=== PATIENT | male | born 1995 | race Caucasian/White ===

== ENCOUNTER 2025-08-21 18:22 | Inpatient (IN) | payer MEDICARE, MEDICAID, SELFPAY ==
--- OUTSIDE RECORDS SUMMARY | 2025-08-20 21:36 | XMS_ITS | Encounter Summary ---
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 results. Oxycodone Screen, Ur Negative Negative LAB CHEMISTRY METHOD 08/20/2025 10:48 PM EDT [facility] Fentanyl, Ur Negative Negative LAB CHEMISTRY METHOD 08/20/2025 10:48 PM T [facility] Urine Urine specimen obtained by clean catch procedure / Unknown Non-blood Collection / Unknown 08/20/2025 9:56 PM EDT 08/20/2025 10:09 PM EDT Narrative [facility] - 08/20/2025 10:48 PM EDT Assay cutoffs: Amphetamines 1000 ng/mL Barbiturates 200 ng/mL Benzodiazepines 200 ng/mL Cocaine 300 ng/mL Fentanyl 1 ng/mL Opiates 300 ng/mL Oxycodone 100 ng/mL THC 50 ng/mL Semi-quantitative assay for screening purposes only. Unconfirmed screening result should not be used for non-medical purposes. *ALTERNATE METHOD CONFIRMATION DONE UPON REQUEST ONLY* us Tex Porras MD LAB URINE ORDERABLES Final Resu lt Performing Organization Address City/[facility]/ZIP Co de Phone Number [facility] [address] [place] [address], [place] [phone] * (ABNORMAL) Salicylate level (08/20/2025 9:56 PM EDT) Salicylate Level <1.7(L) 2.0 - 29.0 mg/dL LAB CHEMISTRY METHOD 08/20/2025 10:45 PM EDT [facility] Blood Venous blood specimen / Unknown Venipuncture / Unknown 08/20/2025 9:56 PM EDT 08/20/2025 10:10 PM EDT Tex Porras MD LAB BLOOD ORDERABLES Final Resu lt [facility] [address] [place] [address], [place] [phone] * Acetaminophen level (08/20/2025 9:56 PM EDT) Acetaminophen Level <2.0 mcg/mL 08/20/2025 10:50 PM EDT [facility] Blood Venous blood specimen / Unknown Venipuncture / Unknown 08/20/2025 9:56 PM EDT 08/20/2025 10:10 PM EDT us Tex Porras MD LAB BLOOD ORDERABLES Final Resu lt Performing Organization Address City/[facility]/ZIP Co de Phone Number [facility] [address] [place] [address], [place] [phone] * Ethanol (08/20/2025 9:56 PM EDT) Ethanol Level <3 0 - 10 mg/dL LAB CHEMISTRY METHOD 08/20/2025 10:45 PM EDT [facility] Blood Venous blood specimen / Unknown Venipuncture / Unknown 08/20/2025 9:56 PM EDT 08/20/2025 10:10 PM EDT us Tex Porras MD LAB BLOOD ORDERABLES Final Resu lt Performing Organization Address [facility]/ZIP Co de Phone Number [facility] [address] [place] [address], [place] [phone] * (ABNORMAL) Comprehensive metabolic panel (08/20/2025 9:56 PM EDT) Pathologist [facility] Sodium 136 133 - 145 mmol/L LAB CHEMISTRY METHOD 08/20/2025 10:45 PM EDT [facility] Potassium 3.9 3.5 - 5.5 mmol/L LAB CHEMISTRY METHOD 08/20/2025 10:45 PM EDT [facility] Chloride 109 96 - 110 mmol/L LAB CHEMISTRY METHOD 08/20/2025 10:45 PM EDT [facility] CO2 20(L) 21 - 32 mmol/L LAB CHEMISTRY METHOD 08/20/2025 10:45 PM EDT [facility] Anion Gap 7 3 - 11 LAB CHEMISTRY METHOD 08/20/2025 10:45 PM EDT [facility] Glucose 102(H) 70 - 100 mg/dL LAB CHEMISTRY METHOD 08/20/2025 10:45 PM EDT [facility] BUN 10 5 - 25 mg/dL LAB CHEMISTRY METHOD 08/20/2025 10:45 PM [facility] Creatinine 0.98 0.70 - 1.30 mg/dL LAB CHEMISTRY METHOD 08/20/2025 10:45 PM [facility] eGFR 107 >=60 mL/min/1. 73m2 LAB CHEMISTRY METHOD 08/20/2025 10:45 PM [facility] Comment:Calculation based on the Chronic Kidney Disease Epidemiology Collaboration (CKD-EPI) equation refit without adjustment for race. BUN/Creatinine Ratio 10.2 LAB CHEMISTRY METHOD 08/20/2025 10:45 PM [facility] Calcium 9.4 8.5 - 10.5 mg/dL LAB CHEMISTRY METHOD 08/20/2025 10:45 PM [facility] AST (SGOT) 11 10 - 42 unit/L LAB CHEMISTRY METHOD 08/20/2025 10:45 PM [facility] ALT (SGPT) 21 10 - 60 unit/L LAB CHEMISTRY METHOD 08/20/2025 10:45 PM [facility] Alkaline Phosphatase 58 42 - 121 unit/L LAB CHEMISTRY METHOD 08/20/2025 10:45 PM [facility] Total Protein 6.9 6.0 - 8.0 g/dL LAB CHEMISTRY METHOD 08/20/2025 10:45 PM [facility] Albumin 3.6 3.2 - 5.0 g/dL LAB CHEMISTRY METHOD 08/20/2025 10:45 PM [facility] Total Bilirubin 0.2 0.0 - 1.4 mg/dL LAB CHEMISTRY METHOD 08/20/2025 10:45 PM [facility] Blood Venous blood specimen / Unknown Venipuncture / Unknown 08/20/2025 9:56 PM EDT 08/20/2025 10:10 PM EDT us Tex Porras MD LAB BLOOD ORDERABLES Final Resu lt [facility] [address] [place] [address], documented in this encounter Visit Diagnoses Diagnosis Suicidal ideation- Primary documented in this encounter Administered Medications Inactive Administered Medications - up to 3 most recent administrations Medication Order MAR Action Action Date Dose Rate Site acetaminophen (TYLENOL) tablet 1,000 mg 1,000 mg, oral, 3 times daily, First dose on Tue08/20/25 at 2138 aluminum-magnesium hydroxide-simethicone (MAALOX) 200-200-20 mg/5 mL suspension 30 mL 30 mL, oral, Every 8 hours PRN, heartburn, indigestion, Starting on Tue08/20/25 at 2136 melatonin tablet 6 mg 6 mg, oral, Nightly PRN, sleep, Starting on Tue08/20/25 at 2136 ondansetron ODT (ZOFRAN-ODT) disintegrating tablet 4 mg 4 mg, oral, Every 8 hours PRN, nausea, vomiting, Starting on Tue08/20/25 at 2137 penicillin G benzathine (BICILLIN-LA) IM injection 1.2 Million Units 1.2 Million Units, intramuscular, Once, On Tue08/21/25 at 1230, For 1 dose, For IM injection ONLY. CAUTION: For intramuscular injection ONLY. Complex administration instructions, see package insert or drug reference link., Indication: Head/Ear/Eye/Nose/Thro at Coverage Given 08/21/2025 12:12 PM EDT 1.2 Million Units Right Ventrogluteal documented in this encounter Active and Recently Administered Medications Times are shown in EDT. Scheduled Medication Order 08/19/2025 08/20/2025 08/21/2025 acetaminophen (TYLENOL) tablet 1,000 mg 1,000 mg, oral, 3 times daily, First dose on Tue08/20/25 at 2138 2230 (Not Given - Provider: Capri Green RN - Reason: Patient/Resident/Agent refused - education provided ) 0834 (Not Given - Provider: Juani Malloy RN - Reason: Patient/Resident/Agent refused - education provided )1305 (Not Given - Provider: Juani Malloy RN - Reason: Patient/Resident/Agent refused - education provided ) penicillin G benzathine (BICILLIN-LA) IM injection 1.2 Million Units (COMPLETED) 1.2 Million Units, intramuscular, Once, On Tue08/21/25 at 1230, For 1 dose, For IM injection ONLY. CAUTION: For intramuscular injection ONLY. Complex administration instructions, see package insert or drug reference link., Indication: Head/Ear/Eye/Nose/Throat Coverage 1212 (Given - Provid er: Juani Malloy RN) PRN Medication Order 08/19/2025 08/20/2025 08/21/2025 aluminum-magnesium hydroxide-simethicone (MAALOX) 200-200-20 mg/5 mL suspension 30 mL 30 mL, oral, Every 8 hours PRN, heartburn, indigestion, Starting on Tue08/20/25 at 2137 melatonin tablet 6 mg 6 mg, oral, Nightly PRN, sleep, Starting on Tue08/20/25 at 2137 ondansetron ODT (ZOFRAN-ODT) disintegrating tablet 4 mg 4 mg, oral, Every 8 hours PRN, nausea, vomiting, Starting on Tue08/20/25 at 2137 documented in this encounter Orders Medications Ordered That Brandt ht Not Have Been Administered Count Last Ordered Date First Ordered Date acetaminophen (TYLENOL) tablet 1,000 mg 1 1 aluminum-magnesium hydroxide -simethicone (MAALOX) 200-200-20 mg/5 mL suspension 30 mL 1 08/20/2025 melatonin tablet 6 mg 1 08/20/2025 ondansetron ODT (ZOFRAN-ODT) disintegrating tablet 4 mg 1 08/20/2025 Consult Count Last Ordered Date First Orde red Date IP CONSULT TO POLITICAL ORGANIZER 1 08/20/2025 documented in this encounter Care Teams [employer] Crew Member Relationship Specialty Start Date End Date Physician, Pcp Unknown PCP - General 06/05/25 documented as of this encounter
[2025-08-21 18:55] VITALS: BP 105/59; PULSE 99; TEMP 37.3; O2SAT 99
[2025-08-21 18:56] VITALS: BMI 52.3
--- NOTE | 2025-08-21 22:02 | PC.ADMIT ---
Juani (Legal name Evgeny) arrived from [facility] at 18:34 on a CV for SI/HI. She is a 29 year old transwoman who uses she/her pronouns. Per RAD team she prefers a male roommate. She resides at a [facility] detention and is unhappy with the situation there. Per crisis report she threatened to run out into traffic and did so prior to being brought to the [facility] ED. She also endorses HI but has not exhibited any aggressive behavior. We know of her contacts as follows: Lorenzo Rodriguez: [facility] Clinical Director [phone] Hernandez Deacon: [facility] Appointed Guardian: [phone] Chelo Kalpana: [facility] Therapist: [phone] Matilde Velásquez: [facility] Psychiatrist [phone] Dr. Romo PCP: [phone] [facility] Mcfp: [phone] assembly supervisor Frederick: [phone] She has previously been inpatient at the [facility] unit. While at [facility] she was calm and cooperative. The sending nurse notes that she was given a shot of Penicillin G for strep pharyngitis 12:12 today. Her diagnoses include PTSD, anxiety, depression, autism, ADHD, seizure disorder, disruptive mood dysregulation disorder, intellectual disability, and gender dysphoria. Tox negative for all substances. Per unit admission, Pt was calm and cooperative with the admission procedure. She endorses SI with no plan and AH, hearing voices but will not disclosed what it is. She appeared to be having cognitive delay/low IQ. She signed released for insurance and pharmacy, signed statement of understanding form, no phone for my contact list. Though, she consented to have the FLU shot but preferred to get it tomorrow morning. safety/skin check shows bruises on Rt forearm and callouses feet. Pt feels safe on the unit. Treatment plans and safety tools initiated, hospitalist contacted for consultation. Pt is on 15 minutes check.
--- OUTSIDE RECORDS SUMMARY | 2025-08-21 22:19 | XMS_ITS | Clinical Summary ---
Author Organization [facility] Address [address] [place] [address] Phone Care Team Providers Care Leach Runner Name Role Phone Physician, Pcp Unknown Primary Care Provider Sue vailable Allergies No known active allergies Medications citalopram (CeleXA) 20 mg tablet Take 1 tablet (20 mg total) by mouth 2 (two) times a day. 08/02/2024 Active amphetamine-dex troamphetamine XR (ADDERALL XR) 20 mg 24 hr capsule Take 1 capsule (20 mg total) by mouth 1 (one) time each day in the morning. 09/06/2024 Active Banophen 25 mg capsule Take 1 capsule (25 mg total) by mouth 1 (one) time each day in the morning. 08/27/2024 Active estradioL (ESTRACE) 1 mg tablet Take 3 tablets (3 mg total) by mouth 2 (two) times a day. 09/04/2024 Active melatonin 5 mg tablet Take 1 tablet (5 mg total) by mouth at bedtime. 08/27/2024 Active OXcarbazepine (TRILEPTAL) 300 mg tablet Take 1 tablet (300 mg total) by mouth 2 (two) times a day. for 30 days 08/18/2024 Active risperiDONE (RisperDAL) 0.25 mg tablet Take 4 tablets (1 mg total) by mouth 2 (two) times a day. 08/20/2024 Active traZODone (DESYREL) 100 mg tablet Take 1 tablet (100 mg total) by mouth at bedtime. 08/02/2024 Active Gavilax 17 gram/dose oral powder Take 17 g by mouth 1 (one) time each day if needed for constipation. 08/27/2024 Active dulaglutide (TRULICITY) 1.5 mg/0.5 mL pen injector injection Inject 0.5 mL (1.5 mg total) under the skin every 7 (seven) days. Active spironolactone (ALDACTONE) 50 mg tablet Take 2 tablets (100 mg total) by mouth 2 (two) times a day. Active carBAMazepine (CARBATROL) 300 mg 12 hr capsule Take 2 capsules (600 mg total) by mouth 2 (two) times a day. Do not crush or chew. Active metFORMIN XR (GLUCOPHAGE-XR) 500 mg 24 hr tablet Take 2 tablets (1,000 mg total) by mouth 2 (two) times a day. 07/27/2024 Active hydrOXYzine pamoate (VISTARIL) 50 mg capsule Take 1 capsule (50 mg total) by mouth 2 (two) times a day. Active Active Problems No known active problems Encounters Date Type Department Care Team Description 08/20/2025 9:36 PM EDT - 08/21/2025 6:08 PM EDT Emergency [facility] [address] [place] [address] Tex Porras MD Landry, Jonathan P, MD Suicidal ideation (Primary Dx) Discharge Disposition: Another Health Care Institution Not Defined 06/05/2025 9:26 PM EDT - 06/06/2025 11:20 AM EDT [facility] Emergency [address] [place] [address] Dulce Dejesus MD Landry, Jonathan P, MD Suicidal ideation (Primary Dx); Adjustment disorder, unspecified type; Episode of recurrent major depressive disorder, unspecified depression episode severity ([facility] V24) Discharge Disposition: Home or Self Care from Last 3 Months Medical History Medical History Date Comments Adhd per long term f act sheet Anxiety disorder, unspecified pe r long term fact sheet Mild intellectual disability per long term fact sheet Autism spectrum disorder per [facility] fact sheet Disruptive mood dysregulation disorder ([facility] V24) per long term fact sheet Obesity per long term f act sheet Seizure disorder ([facility] V24, [facility] V28) 2019 per H + P Enuresis 2019 per H + P Social History Tobacco Use Types Packs/Day Years [...] on file Sexual Orientation Not on file Obstetrics History Last Filed Vital Signs Vital Sign Reading Time Taken Comments Blood Pressure 111/68 08/21/2025 12:44 PM EDT Pulse 96 08/21/2025 12:44 PM EDT Temperature 37.2 C (98.9 F) 08/21/2025 12:44 PM EDT Respiratory Rate 16 08/21/2025 12:44 PM EDT Oxygen Saturation 100% 08/21/2025 12:44 PM EDT Inhaled Oxygen Concentration - - Weight 136 kg (300 lb 1.6 oz) 06/06/2025 9:06 AM EDT Height 170.2 cm (5' 7 ) 06/05/2025 9:41 PM EDT Body Mass Index 47 06/05/2025 9:41 PM EDT Plan of Treatment Health Maintenance Due Date Last Done Comments HPV Vaccines (2 - Male 3-dose series) 10/02/2013 09/04/2013 HIV Screening 09/11/2024 Hepatitis C Screening 09/11/2024 Medicare Annual Wellness Visit 09/11/2024 Social Influencers of Health Screening 09/11/2024 Depression Screening 10/31/2024 Influenza Vaccine (#1) 2025 , 08/04/2023, 08/12/2022, Additional history exists DTaP,Tdap,and Td Vaccines (9 - Td or Tdap) 02/21/2029 02/21/2019, 10/20/2017, 07/20/2007, Additional history exists Cholesterol Screening (Lipid Panel) 09/18/2029 09/18/2024 RSV Immunization Adult Patients (1 - 1-dose 75+ series) 2070 Hepatitis B Vaccines Completed 10/02/1996, 01/17/1996, 1995 HIB Vaccines Completed 03/29/1997, 07/01, 05/08/1996, Additional history exists MMR Vaccines Completed 07/05/2000, 03/29/1997 IPV Vaccines Completed 12/30/2000, 07/01, 05/08/1996, Additional history exists Varicella Vaccines Completed 07/20/2007, 12/26/1997 Meningococcal ACWY Vaccine Completed 02/28/2012, COVID-19 Vaccine Completed 07/31/2024, , 01/10/2021, Additional history exists Hepatitis A Vaccines Aged Out No long er eligible based on patient's age to complete this topic Meningococcal B Vaccine Aged Out No l onger eligible based on patient's age to complete this topic Pneumococcal Vaccine: Pediatrics (0 to 5 Years) and At-Risk Patients (6 to 49 Years) Aged Out No longer eligible based on patient's age to complete this topic RSV Immunization Patients Under 20 months Aged Out No longer eligible based on patient's age to complete this topic Procedures Procedure Name Priority Date/Time Associated Diagnosis Comments ECG 12-LEAD STAT 08/20/2025 10:02 PM EDT CBC WITH AUTO DIFFERENTIAL STAT 08/20/2025 9:56 PM EDT METHADONE SCREEN, URINE STAT 08/20/2025 9:56 PM EDT PHENCYCLIDINE, URINE STAT 08/20/2025 9:56 PM EDT BUPRENORPHINE SCREEN, URINE STAT 08/20/2025 9:56 PM EDT DRUG ABUSE SCREEN 8A PANEL, URINE STAT 08/20/2025 9:56 PM EDT SALICYLATE LEVEL STAT 08/20/2025 9:56 PM EDT ACETAMINOPHEN LEVEL STAT 08/20/2025 9 :56 PM EDT ETHANOL STAT 08/20/2025 9:56 PM EDT COMPREHENSIVE METABOLIC PANEL STAT 08/20/2025 9:56 PM EDT CBC AND DIFFERENTIAL STAT 08/20/2025 9:56 PM EDT ECG ANNOTATED 06/07/2025 ECG 12-LEAD STAT 06/06/2025 10:19 AM EDT CBC WITH AUTO DIFFERENTIAL STAT 06/05/2025 9:37 PM EDT METHADONE SCREEN, URINE STAT 06/05/2025 9:37 PM EDT PHENCYCLIDINE, URINE STAT 06/05/2025 9:37 PM EDT BUPRENORPHINE SCREEN, URINE STAT 06/05/2025 9:37 PM EDT DRUG ABUSE SCREEN 8A PANEL, URINE STAT 06/05/2025 9:37 PM EDT SALICYLATE LEVEL STAT 06/05/2025 9:37 PM EDT ACETAMINOPHEN LEVEL STAT 06/05/2025 9 :37 PM EDT ETHANOL STAT 06/05/2025 9:37 PM EDT COMPREHENSIVE METABOLIC PANEL STAT 06/05/2025 9:37 PM EDT CBC AND DIFFERENTIAL STAT 06/05/2025 9:37 PM EDT LIPID PANEL WITH REFLEX TO DIRECT LDL Routine 09/18/2024 7:00 AM EST Other dedicated intermodal truck driver (current) drug therapy from Last 3 Months or Most Recently Relevant to Health Maintenance Results * ECG 12 lead (08/20/2025 10:02 PM EDT) Only the most recent of2 resultswithin the time period is included. Ventricular Rate ECG 90 BPM GEMUSE Atrial Rate 90 BPM GEMUSE P-R Interval 156 ms GEMUSE QRS Duration 82 ms GEMUSE Q-T Interval 386 ms GEMUSE QTc 472 ms GEMUSE P Wave [place] 53 degrees GEMUSE R [place] 29 degrees GEMUSE T [place] 50 degrees GEMUSE ECG Interpretation Normal sinus rhythm Normal ECG When compared with ECG of 06-JUN-2025 10:19, Nonspecific T wave abnormality no longer evident in Anterior leads Confirmed by Bonny ABRAHAM JOHN ([id number]) on 08/21/2025 7:16:18 PM GEMUSE 08/20/2025 10:0 2 PM EDT 08/21/2025 7:16 PM EDT Tex Porras MD ECG ORDERABLES Final Result GEMUSE * Drug abuse screen 8a panel, urine (08/20/2025 9:56 PM EDT) Only the most recent of2 resultswithin the time period is included. [facility] Amphetamine Screen, Ur Negative Negative LAB CHEMISTRY METHOD 08/20/2025 10:48 PM EDT [facility] Comment:Certain OTC medicati ons containing ephedrine, phenylephrine, pseudoephedrine and phenylpropanolamine can cause false positive results. Barbiturate Screen, Ur Negative Negative LAB CHEMISTRY METHOD 08/20/2025 10:48 PM EDT [facility] Benzodiazepine Screen, Ur Negative Negative LAB CHEMISTRY METHOD 08/20/2025 10:48 PM EDT [facility] Cocaine Screen, Ur Negative Negative LAB CHEMISTRY METHOD 08/20/2025 10:48 PM EDT [facility] Opiate Screen, Ur Negative Negative LAB CHEMISTRY METHOD 08/20/2025 10:48 PM EDT [facility] Cannabinoid (THC) Screen, Ur Negative Negative LAB CHEMISTRY METHOD 08/20/2025 10:48 PM EDT [facility] Comment:Specimens from patie nts taking pantoprazole sodium (Protonix) have been shown to produce false positive results. Oxycodone Screen, Ur Negative Negative LAB CHEMISTRY METHOD 08/20/2025 10:48 PM EDT [facility] Fentanyl, Ur Negative Negative LAB CHEMISTRY METHOD 08/20/2025 10:48 PM EDT [facility] Urine Urine specimen obtained by clean catch procedure / Unknown Non-blood Collection / Unknown 08/20/2025 9:56 PM EDT 08/20/2025 10:09 PM EDT Narrative [facility] - 08/20/2025 10:48 PM EDT [...] ORDERABLES Final Resu lt Performing Organization Address City/[facility]/ZIP Co de Phone Number [facility] [address] [place] [address], [place] [phone] * Buprenorphine screen, urine (08/20/2025 9:56 PM EDT) Only the most recent of2 resultswithin the time period is included. [facility] Buprenorphine Screen Urine Negative Negative LAB CHEMISTRY METHOD 08/20/2025 10:48 PM EDT [facility] Urine Urine specimen obtained by clean catch procedure / Unknown Non-blood Collection / Unknown 08/20/2025 9:56 PM EDT 08/20/2025 10:09 PM EDT Narrative [facility] - 08/20/2025 10:48 PM EDT Assay cutoff 5 ng/mL Semi-quantitative assay for screening purposes only. Unconfirmed screening result should not be used for non-medical purposes. *ALTERNATE METHOD CONFIRMATION DONE UPON REQUEST ONLY* Tex Porras MD LAB URINE ORDERABLES Final Resu lt [facility] [address] [place] [address], [place] [phone] * Methadone, urine (08/20/2025 9:56 PM EDT) Only the most recent of2 resultswithin the time period is included. [facility] Methadone Screen, Urine Negative Negative LAB CHEMISTRY METHOD 08/20/2025 10:48 PM EDT [facility] Comment: Assay cutoff 300 ng/mL Semi-quantitative assay for screening purposes only. Unconfirmed screening result should not be used for non-medical purposes. *ALTERNATE METHOD CONFIRMATION DONE UPON REQUEST ONLY* Urine Urine specimen obtained by clean catch procedure / Unknown Non-blood Collection / Unknown 08/20/2025 9:56 PM EDT 08/20/2025 10:09 PM EDT Tex Porras MD LAB URINE ORDERABLES Final Resu lt [facility] [address] [place] [address], * (ABNORMAL) CBC auto differential (08/20/2025 9:56 PM EDT) Only the most recent of2 resultswithin the time period is included. [facility] WBC 11.0(H) 4.8 - 10.8 K/mcL LAB HEMETOLOGY METHOD 08/20/2025 10:23 PM EDT [facility] RBC 4.70 4.50 - 5.50 M/mcL LAB HEMETOLOGY METHOD 08/20/2025 10:23 PM EDT [facility] Hemoglobin 13.3(L) 13.5 - 17.5 g/dL LAB HEMETOLOGY METHOD 08/20/2025 10:23 PM EDT [facility] Hematocrit 40.0(L) 42.0 - 54.0 % LAB HEMETOLOGY METHOD 08/20/2025 10:23 PM EDT [facility] MCV 84.4 79.0 - 98.0 FL LAB HEMETOLOGY METHOD 08/20/2025 10:23 PM EDT [facility] MCH 28.1 27.0 - 32.0 pcg LAB HEMETOLOGY METHOD 08/20/2025 10:23 PM EDT [facility] MCHC 33.3 32.0 - 37.0 g/dL LAB HEMETOLOGY METHOD 08/20/2025 10:[facility] RDW 13.1 11.0 - 15.0 % LAB HEMETOLOGY METHOD 08/20/2025 10:23 PM EDT [facility] Platelets 380 130 - 400 K/mcL LAB HEMETOLOGY METHOD 08/20/2025 10:23 PM EDT [facility] MPV 9.6 7.0 - 11.0 FL LAB HEMETOLOGY METHOD 08/20/2025 10:23 PM [facility] NRBC 0.0 <1.0 % LAB HEMETOLOGY METHOD 08/20/2025 10:23 PM EDT [facility] NRBC Absolute 0.00 <0.10 K/mcL LAB HEMETOLOGY METHOD 08/20/2025 10:23 PM [facility] Neutrophils Relative 75.3 % LAB HEMETOLOGY METHOD 08/20/2025 10:23 PM [facility] Lymphocytes Relative 15.5 % LAB HEMETOLOGY METHOD 08/20/2025 10:23 PM EDT [facility] Monocytes Relative 6.6 % LAB HEMETOLOGY METHOD 08/20/2025 10:23 PM T [facility] Eosinophils Relative 1.7 % LAB HEMETOLOGY METHOD 08/20/2025 10:23 PM EDT [facility] Basophils Relative 0.5 % LAB HEMETOLOGY METHOD 08/20/2025 10:23 PM [facility] Immature Granulocytes Relative 0.4 % LAB HEMETOLOGY METHOD 08/20/2025 10:23 PM EDT [facility] Neutrophils Absolute 8.30(H) 1.50 - 7.00 K/mcL LAB HEMETOLOGY METHOD 08/20/2025 10:23 PM EDT [facility] Lymphocytes Absolute 1.71 1.00 - 5.00 K/mcL LAB HEMETOLOGY METHOD 08/20/2025 10:23 PM EDT [facility] Monocytes Absolute 0.73 0.20 - 1.00 K/[facility] LAB HEMETOLOGY METHOD 08/20/2025 10:23 PM EDT [facility] Eosinophils Absolute 0.19 0.00 - 0.50 K/[facility] LAB HEMETOLOGY METHOD 08/20/2025 10:23 PM EDT [facility] Basophils Absolute 0.05 0.00 - 0.20 K/mcL LAB HEMETOLOGY METHOD 08/20/2025 10:23 PM EDT [facility] Immature Granulocytes Absolute 0.04(H) 0.00 - 0.03 K/[facility] LAB HEMETOLOGY METHOD 08/20/2025 10:23 PM EDT [facility] Blood Venous blood specimen / Unknown Venipuncture / Unknown 08/20/2025 9:56 PM EDT 08/20/2025 10:10 PM EDT eTx Porras MD LAB BLOOD ORDERABLES Final Resu lt [facility] [address] [place] [address], * Phencyclidine, urine (08/20/2025 9:56 PM EDT) Only the most recent of2 resultswithin the time period is included. PCP Scrn, Ur Negative Negative LAB CHEMISTRY METHOD 08/20/2025 10:49 PM EDT [facility] Comment: Assay cutoff 25 ng/mL Semi-quantitative assay for screening purposes only. Unconfirmed screening result should not be used for non-medical purposes. *ALTERNATE METHOD CONFIRMATION DONE UPON REQUEST ONLY* Urine Urine specimen obtained by clean catch procedure / Unknown Non-blood Collection / Unknown 08/20/2025 9:56 PM EDT 08/20/2025 10:09 PM EDT us Tex Porras MD LAB URINE ORDERABLES Final Resu lt Performing Organization Address [facility] de Phone Number [facility] [address] [place] [address], [place] [phone] * Ethanol (08/20/2025 9:56 PM EDT) Only the most recent of2 resultswithin the time period is included. Ethanol Level <3 0 - 10 mg/dL LAB CHEMISTRY METHOD 08/20/2025 10:45 PM EDT [facility] Blood Venous blood specimen / Unknown Venipuncture / Unknown 08/20/2025 9:56 PM EDT 08/20/2025 10:10 PM EDT us Tex Porras MD LAB BLOOD ORDERABLES Final Resu lt Performing Organization Address [facility] de Phone Number [facility] [address] [place] [address], [place] [phone] * Acetaminophen level (08/20/2025 9:56 PM EDT) Only the most recent of2 resultswithin the time period is included. Acetaminophen Level <2.0 mcg/mL 08/20/2025 10:50 PM EDT [facility] Blood Venous blood specimen / Unknown Venipuncture / Unknown 08/20/2025 9:56 PM EDT 08/20/2025 10:10 PM EDT us Tex Porras MD LAB BLOOD ORDERABLES Final Resu lt Performing Organization Address [facility]/State/ZIP Co de Phone Number [facility] [address] [place] [address], [place] [phone] * (ABNORMAL) Salicylate level (08/20/2025 9:56 PM EDT) Only the most recent of2 resultswithin the time period is included. Salicylate Level <1.7(L) 2.0 - 29.0 mg/dL LAB CHEMISTRY METHOD 08/20/2025 10:45 PM EDT [facility] Blood Venous blood specimen / Unknown Venipuncture / Unknown 08/20/2025 9:56 PM EDT 08/20/2025 10:10 PM EDT Tex Porras MD LAB BLOOD ORDERABLES Final Resu lt [facility] [address] [place] [address], [place] [phone] * (ABNORMAL) Comprehensive metabolic panel (08/20/2025 9:56 PM EDT) Only the most recent of2 resultswithin the time period is included. Sodium 136 133 - 145 mmol/L LAB CHEMISTRY METHOD 08/20/2025 10:45 PM EDT [facility] Potassium 3.9 3.5 - 5.5 mmol/L LAB CHEMISTRY METHOD 08/20/2025 10:45 PM EDT [facility] Chloride 109 96 - 110 mmol/L LAB CHEMISTRY METHOD 08/20/2025 10:45 PM EDT [facility] CO2 20(L) 21 - 32 mmol/L LAB CHEMISTRY METHOD 08/20/2025 10:45 PM EDT [facility] Anion Gap 7 3 - 11 LAB CHEMISTRY METHOD 08/20/2025 10:45 PM EDT [facility] Glucose 102(H) 70 - 100 mg/dL LAB CHEMISTRY METHOD 08/20/2025 10:45 PM [facility] BUN 10 5 - 25 mg/dL LAB CHEMISTRY METHOD 08/20/2025 10:45 PM [facility] Creatinine 0.98 0.70 - 1.30 mg/dL LAB CHEMISTRY METHOD 08/20/2025 10:45 PM [facility] eGFR 107 >=60 mL/min/1. 73m2 LAB CHEMISTRY METHOD 08/20/2025 10:45 PM [facility] Comment:Calculation based on the Chronic Kidney Disease Epidemiology Collaboration (CKD-EPI) equation refit without adjustment for race. BUN/Creatinine Ratio 10.2 LAB CHEMISTRY METHOD 08/20/2025 10:45 PM [facility] Calcium 9.4 8.5 - 10.5 mg/dL LAB CHEMISTRY METHOD 08/20/2025 10:45 PM [facility] AST (SGOT) 11 10 - 42 unit/L LAB CHEMISTRY METHOD 08/20/2025 10:45 PM [facility] ALT (SGPT) 21 10 - 60 unit/L LAB CHEMISTRY METHOD 08/20/2025 10:45 PM [facility] Alkaline Phosphatase 58 42 - 121 unit/L LAB CHEMISTRY METHOD 08/20/2025 10:45 PM [facility] Total Protein 6.9 6.0 - 8.0 g/dL LAB CHEMISTRY METHOD 08/20/2025 10:45 PM [facility] Albumin 3.6 3.2 - 5.0 g/dL LAB CHEMISTRY METHOD 08/20/2025 10:45 PM [facility] Total Bilirubin 0.2 0.0 - 1.4 mg/dL LAB CHEMISTRY METHOD 08/20/2025 10:45 PM [facility] Blood Venous blood specimen / Unknown Venipuncture / Unknown 08/20/2025 9:56 PM EDT 08/20/2025 10:10 PM EDT Tex Porras MD LAB BLOOD ORDERABLES Final Resu lt [facility] [address] [place] [address], [place] [phone] * ECG-Annotated (06/07/2025) Provider Onbase ECG ORDERABLES Final Result * (ABNORMAL) Lipid panel with reflex to direct LDL (09/18/2024 7:00 AM EST) Cholesterol 155 0 - 200 mg/dL LAB CHEMISTRY METHOD 09/18/2024 10:00 AM EST [facility] Triglycerides 79 0 - 150 mg/dL LAB CHEMISTRY METHOD 09/18/2024 10:00 AM [facility] HDL 37(L) >=40 mg/dL LAB CHEMISTRY METHOD 09/18/2024 10:00 AM EST [facility] LDL Calculated 102(H) 0 - 100 mg/dL LAB CHEMISTRY METHOD 09/18/2024 10:00 AM EST [facility] VLDL Cholesterol Alessandro 15.8 mg/dL LAB CHEMISTRY METHOD 09/18/2024 10:00 AM [facility] Non HDL Chol. (LDL+VLDL) 118 <145 mg/dL LAB CHEMISTRY METHOD 09/18/2024 10:00 AM EST [facility] Chol/HDL Ratio 4.2 0.0 - 4.4 LAB CHEMISTRY METHOD 09/18/2024 10:00 AM [facility] Blood Venous blood specimen / Unknown Venipuncture / Unknown 09/18/2024 7:00 AM EST 09/18/2024 9:00 AM EST Ella Escamilla LAB BLOOD ORDERABLES Final Resu lt [facility] [address] [place] [address], [place] [phone] from Last 3 Months or Most Recently Relevant to Health Maintenance Insurance MEDICARE MEDICAID - [place] Care Teams Leach Runner Relationship Specialty Start Date End Date Physician, Pcp Unknown PCP - General 06/05/25
--- OUTSIDE RECORDS SUMMARY | 2025-08-21 22:19 | XMS_ITS | Clinical Summary ---
Author Organization [facility] Address [address] [place] [address] Phone Care Team Providers Care Brush Material Preparer Name Role Phone Eliseo Foreman DO Primary Care Provider [phone] Allergies No known active allergies Medications risperiDONE (RISPERDAL) 0.25 MG tablet Take 0.25 mg by mouth 2 (two) times a day. Active fluticasone propionate (FLONASE) 50 mcg/actuation nasal spray 1 spray by Nasal route daily. Active traZODone (DESYREL) 100 MG tablet Take 100 mg by mouth nightly at bedtime. Active omeprazole (PRILOSEC) 20 mg TbEC Take 40 mg by mouth daily before breakfast. Active CARBAMAZEPINE ORAL Take 600 mg by mouth 2 (two) times a day. Active dextroamphetami ne-amphetamine (ADDERALL XR) 20 MG 24 hr capsule Take 20 mg by mouth every morning. Active citalopram (CELEXA) 20 MG tablet Take 30 mg by mouth nightly at bedtime. Active hydrOXYzine (VISTARIL) 25 MG capsule Take 25 mg by mouth 4 (four) times a day as needed for anxiety. Active diphenhydrAMINE (BENADRYL) 50 MG capsule Take 50 mg by mouth 2 (two) times a day as needed (anxiety). Active Social History Tobacco Use Types Packs/Day Years Used Date Smoking Tobacco: Never Smokeless Tobacco: Never Alcohol Use Standard Drinks/Week Comments Never 0 (1 standard drink = 0.6 oz pur e alcohol) Education Answer Date Recorded Are you interested in more education? Not on katie e 02/25/2023 Are you concerned about learning? Not on file 02/25/2023 No 02/25/2023 No 02/25/2023 Digital Access Answer Date Recorded No 03/26/2023 No 03/26/2023 No 03/26/2023 Reliable internet access at home? Not on file 03/26/2023 Device with a working camera? Not on file Sex and Gender Information Value Date Recorded Sex Assigned at Male 06/15/2019 7:58 PM EDT Legal Sex Male 7:40 PM EDT Gender Identity Male 06/15/2019 7:58 PM EDT Sexual Orientation Not on file Last Filed Vital Signs Vital Sign Reading Time Taken Comments Blood Pressure 115/73 06/19/2019 9:16 AM EDT Pulse 97 06/19/2019 9:16 AM EDT Temperature 36.6 C (97.9 F) 06/19/2019 9:16 AM EDT Respiratory Rate 17 06/19/2019 9:16 AM EDT Oxygen Saturation 96% 06/19/2019 9:16 AM EDT Inhaled Oxygen Concentration - - Weight 113.4 kg (250 lb) 06/17/2019 7:01 PM EDT Height 177.8 cm (5' 10 ) 06/17/2019 7:01 PM EDT Body Mass Index 35.87 06/17/2019 7:01 PM EDT Plan of Treatment Health Maintenance Due Date Last Done Comments CARBAMAZEPINE (TEGRETOL) LEVEL 1995 DEPRESSION SCREENING 2007 HEPATITIS C SCREENING 2013 HIV ONE-TIME SCREENING (18-65 YEARS) 2013 Adult Td,Tdap Booster 07/20/2017 07/20/2007 SMOKING STATUS SCREENING (Once After 26 Yrs) 2021 INFLUENZA VACCINE (#1) 2025 07/26/2008, 2006 COVID-19 VACCINE ( season) 2025 01/10/2021, 12/20/2020 HIB VACCINES Completed 03/29/1997, 07/01, 05/08/1996, Additional history exists MENINGOCOCCAL VACCINES (ACWY) Aged Out 07/26/2008 No longer eligible based on patient's age to complete this topic HEPATITIS A VACCINES Aged Out No long er eligible based on patient's age to complete this topic MENINGOCOCCAL VACCINES (B) Aged Out N o longer eligible based on patient's age to complete this topic PNEUMOCOCCAL VACCINES (0-49 years) Aged Out No longer eligible based on patient's age to complete this topic Medical Devices Not on file Insurance [place] [id number] MEDICARE PART A [facility] [address] [place] [address] [id number] MEDICARE PART A & [place] [id number] MEDICARE PART A [place] [id number] [place] [id number] MEDICARE PART A & [place] [id number] MEDICARE PART A & B [facility] [place] [id number] Care Teams Brush Material Preparer Relationship Specialty Start Date End Date Eliseo Foreman DO PCP - General 06/17/19 Additional Source Comments The information contained in this document represents components of the legal health record. It is not the complete legal health record.[facility]
--- OUTSIDE RECORDS SUMMARY | 2025-08-21 22:19 | XMS_ITS | Encounter Summary ---
Author Organization [facility] Address [address] [place] [address] Care Team Providers Care Pull Socket Assembler Name Role Phone Physician, Pcp Unknown Primary Care Provider Sue vailable Encounter Details Date Type Department Care Team (Late st Contact Info) Description 09/18/2024 Lab Requisition [facility] - Main Lab [address] [facility] [place] [phone] [place] [phone] Other fci (current) drug therapy Social History Tobacco Use Types Packs/Day Years Used Date Smoking Tobacco: Never Assessed Sex and Gender Information Value Date Recorded Sex Assigned at Not on file Legal Sex Male 8:00 PM EST Gender Identity Not on file Sexual Orientation Not on file documented as of this encounter Functional Status * Are you deaf or do you have serious difficulty hearing? Answer Date of Assessment Author No 09/11/2024 7:56 PM Piter Acevedo RN * Are you blind or do you have serious difficulty seeing, even when wearing glasses? Answer Date of Assessment Author No 09/11/2024 7:56 PM Piter Acevedo RN * Do you have serious difficulty walking or climbing stairs? Answer Date of Assessment Author No 09/11/2024 7:56 PM Piter Acevedo RN * Do you have serious difficulty dressing or bathing? Answer Date of Assessment Author No 09/11/2024 7:56 PM Piter Acevedo RN documented as of this encounter Mental Status * Because of a physical, mental, or emotional condition, do you have serious difficulty concentrating, remembering, or making decisions? (5 years old or older) Answer Entry Date Author No 09/11/2024 7:56 PM EST Piter Franklin RN documented in this encounter Plan of Treatment Not on file documented as of this encounter Procedures Procedure Name Priority Date/Time Associated Diagnosis Comments LIPID PANEL WITH REFLEX TO DIRECT LDL Routine 09/18/2024 7:00 AM EST Other joint terminal attack controller (current) drug therapy CBC WITH AUTO DIFFERENTIAL Routine 09/18/2024 7:00 AM EST Other fci (current) drug therapy CBC AND DIFFERENTIAL Routine 09/18/2024 7:00 AM EST Other joint terminal attack controller (current) drug therapy HEMOGLOBIN A1C Routine 09/18/2024 7:00 AM EST Other fci (current) drug therapy COMPREHENSIVE METABOLIC PANEL Routine 09/18/2024 7:00 AM EST Other fci (current) drug therapy documented in this encounter Results * (ABNORMAL) CBC auto differential (09/18/2024 7:00 AM EST) WBC 7.1 4.8 - 10.8 K/mcL LAB HEMETOLOGY METHOD 09/18/2024 9:35 AM [facility] RBC 4.20(L) 4.50 - 5.50 M/mcL LAB HEMETOLOGY METHOD 09/18/2024 9:35 AM [facility] Hemoglobin 12.0(L) 13.5 - 17.5 g/dL LAB HEMETOLOGY METHOD 09/18/2024 9:35 AM [facility] Hematocrit 37.0(L) 42.0 - 54.0 % LAB HEMETOLOGY METHOD 09/18/2024 9:35 AM [facility] MCV 89.2 79.0 - 98.0 FL LAB HEMETOLOGY METHOD 09/18/2024 9:35 AM [facility] MCH 28.9 27.0 - 32.0 pcg LAB HEMETOLOGY METHOD 09/18/2024 9:35 AM [facility] MCHC 32.4 32.0 - 37.0 g/dL LAB HEMETOLOGY METHOD 09/18/2024 9:35 AM [facility] RDW 13.2 11.0 - 15.0 % LAB HEMETOLOGY METHOD 09/18/2024 9:35 AM [facility] Platelets 366 130 - 400 K/mcL LAB HEMETOLOGY METHOD 09/18/2024 9:35 AM [facility] MPV 10.5 7.0 - 11.0 FL LAB HEMETOLOGY METHOD 09/18/2024 9:35 AM [facility] NRBC 0.3 <1.0 % LAB HEMETOLOGY METHOD 09/18/2024 9:35 AM [facility] NRBC Absolute 0.02 <0.10 K/[facility] LAB HEMETOLOGY METHOD 09/18/2024 9:35 AM [facility] Neutrophils Relative 63.3 % LAB HEMETOLOGY METHOD 09/18/2024 9:35 AM [facility] Lymphocytes Relative 23.3 % LAB HEMETOLOGY METHOD 09/18/2024 9:35 AM [facility] Monocytes Relative 8.3 % LAB HEMETOLOGY METHOD 09/18/2024 9:35 AM [facility] Eosinophils Relative 4.1 % LAB HEMETOLOGY METHOD 09/18/2024 9:35 AM [facility] Basophils Relative 0.7 % LAB HEMETOLOGY METHOD 09/18/2024 9:35 AM [facility] Immature Granulocytes Relative 0.3 % LAB HEMETOLOGY METHOD 09/18/2024 9:35 AM [facility] Neutrophils Absolute 4.48 1.50 - 7.00 K/mcL LAB HEMETOLOGY METHOD 09/18/2024 9:35 AM EST [facility] Lymphocytes Absolute 1.65 1.00 - 5.00 K/[facility] LAB HEMETOLOGY METHOD 09/18/2024 9:35 AM EST [facility] Monocytes Absolute 0.59 0.20 - 1.00 K/[facility] LAB HEMETOLOGY METHOD 09/18/2024 9:35 AM EST [facility] Eosinophils Absolute 0.29 0.00 - 0.50 K/[facility] LAB HEMETOLOGY METHOD 09/18/2024 9:35 AM EST [facility] Basophils Absolute 0.05 0.00 - 0.20 K/[facility] LAB HEMETOLOGY METHOD 09/18/2024 9:35 AM EST [facility] Immature Granulocytes Absolute 0.02 0.00 - 0.03 K/[facility] LAB HEMETOLOGY METHOD 09/18/2024 9:35 AM EST [facility] Blood Venous blood specimen / Unknown Venipuncture / Unknown 09/18/2024 7:00 AM EST 09/18/2024 9:00 AM EST Ella Escamilla LAB BLOOD ORDERABLES Final Resu lt [facility] [address] [place] [address], * Hemoglobin A1c (09/18/2024 7:00 AM EST) Hemoglobin A1C 4.6 <6.5 % LAB CHEMISTRY METHOD 09/19/2024 10:08 AM EST [facility] Mean Bld Glu Estim. 85 mg/dL LAB CHEMISTRY METHOD 09/19/2024 10:08 AM EST [facility] Blood Venous blood specimen / Unknown Venipuncture / Unknown 09/18/2024 7:00 AM EST 09/18/2024 9:00 AM EST us Ella Escamilla LAB BLOOD ORDERABLES Final Resu lt [facility] [address] [place] [address], [place] [phone] * (ABNORMAL) Lipid panel with reflex to direct LDL (09/18/2024 7:00 AM EST) Cholesterol 155 0 - 200 mg/dL LAB CHEMISTRY METHOD 09/18/2024 10:00 AM EST [facility] Triglycerides 79 0 - 150 mg/dL LAB CHEMISTRY METHOD 09/18/2024 10:00 AM EST [facility] HDL 37(L) >=40 mg/dL LAB CHEMISTRY METHOD 09/18/2024 10:00 AM [facility] LDL Calculated 102(H) 0 - 100 mg/dL LAB CHEMISTRY METHOD 09/18/2024 10:00 AM EST [facility] VLDL Cholesterol Alessandro 15.8 mg/dL LAB CHEMISTRY METHOD 09/18/2024 10:00 AM EST [facility] Non HDL Chol. (LDL+VLDL) 118 <145 mg/dL LAB CHEMISTRY METHOD 09/18/2024 10:00 AM [facility] Chol/HDL Ratio 4.2 0.0 - 4.4 LAB CHEMISTRY METHOD 09/18/2024 10:00 AM [facility] Blood Venous blood specimen / Unknown Venipuncture / Unknown 09/18/2024 7:00 AM EST 09/18/2024 9:00 AM EST Ella Escamilla LAB BLOOD ORDERABLES Final Resu lt [facility] [address] [place] [address], [place] [phone] * (ABNORMAL) Comprehensive metabolic panel (09/18/2024 7:00 AM EST) Sodium 140 133 - 145 mmol/L LAB CHEMISTRY METHOD 09/18/2024 10:00 AM [facility] Potassium 4.4 3.5 - 5.5 mmol/L LAB CHEMISTRY METHOD 09/18/2024 10:00 AM [facility] Chloride 106 96 - 110 mmol/L LAB CHEMISTRY METHOD 09/18/2024 10:00 AM [facility] CO2 29 21 - 32 mmol/L LAB CHEMISTRY METHOD 09/18/2024 10:00 AM [facility] Anion Gap 5 3 - 11 LAB CHEMISTRY METHOD 09/18/2024 10:00 AM [facility] Glucose 108(H) 70 - 100 mg/dL LAB CHEMISTRY METHOD 09/18/2024 10:00 AM [facility] BUN 15 5 - 25 mg/dL LAB CHEMISTRY METHOD 09/18/2024 10:00 AM [facility] Creatinine 0.56(L) 0.70 - 1.30 mg/dL LAB CHEMISTRY METHOD 09/18/2024 10:00 AM [facility] eGFR 138 >=60 mL/min/1. 73m2 LAB CHEMISTRY METHOD 09/18/2024 10:00 AM [facility] Comment:Calculation based on the Chronic Kidney Disease Epidemiology Collaboration (CKD-EPI) equation refit without adjustment for race. BUN/Creatinine Ratio 26.8 LAB CHEMISTRY METHOD 09/18/2024 10:00 AM [facility] Calcium 8.6 8.5 - 10.5 mg/dL LAB CHEMISTRY METHOD 09/18/2024 10:00 AM [facility] AST (SGOT) 9(L) 10 - 42 unit/L LAB CHEMISTRY METHOD 09/18/2024 10:00 AM [facility] ALT (SGPT) 24 10 - 60 unit/L LAB CHEMISTRY METHOD 09/18/2024 10:00 AM [facility] Alkaline Phosphatase 64 42 - 121 unit/L LAB CHEMISTRY METHOD 09/18/2024 10:00 AM EST [facility] Total Protein 5.6(L) 6.0 - 8.0 g/dL LAB CHEMISTRY METHOD 09/18/2024 10:00 AM EST [facility] Albumin 3.1(L) 3.2 - 5.0 g/dL LAB CHEMISTRY METHOD 09/18/2024 10:00 AM EST [facility] Total Bilirubin 0.2 0.0 - 1.4 mg/dL LAB CHEMISTRY METHOD 09/18/2024 10:00 AM EST [facility] Blood Venous blood specimen / Unknown Venipuncture / Unknown 09/18/2024 7:00 AM EST 09/18/2024 9:00 AM EST us Ella Escamilla LAB BLOOD ORDERABLES Final Resu lt [facility] [address] [place] [address], documented in this encounter Visit Diagnoses Diagnosis Other joint terminal attack controller (current) drug therapy documented in this encounter Care Teams Pull Socket Assembler Relationship Specialty Start Date End Date Physician, Pcp Unknown PCP - General 06/05/25 documented as of this encounter
[2025-08-22 08:11] VITALS: BP 95/55; PULSE 74; RESP 20; TEMP 36.4; O2SAT 100
--- NOTE | 2025-08-22 08:19 | HO.PM.IMCN ---
History of Present Illness Data of Consult Service Date: 08/22/25 Primary Care Provider: Unknown Physician HPI Reason for consult: Medical consult 29-year-old male who identifies as a female would like to be called Juani, with a past medical history ADHD, recurrent major depressive disorder, anxiety disorder, autism spectrum disorder, disruptive mood dysregulation disorder, obesity, seizure disorder, type 2 diabetes presented to [facility] with suicidal ideation after she attempted to run in front of a car, also homicidal ideation wants to hurt people. Initial blood work revealed a normal CBC, blood alcohol level negative, tox screen negative. No evidence of renal or kidney impairment, no electrolyte imbalances. Urinalysis without evidence of infection. EKG with normal sinus rhythm. On exam she has no medical concerns. Review of Systems Review of Systems: Denies any shortness of breath, chest pain, headaches, dysuria, abdominal pain or discomfort, nausea, vomiting or diarrhea. Denies fever or chills. PMFSH Social History Household Members: Other Household Members Other:: jail Housing: Assisted Living Facility Do you presently have visiting nurse or other home services: No Patient Tobacco Use Status: Never used Tobacco Smoked in Last 30 Days: No e-Cigarette/Vaping Use: Never Used Patient Interested in Nicotine Replacement: No Patient Given Instructions on How to Stop Smoking: No Second Hand Smoke Exposure: No Have you been hit, kicked, punched, or otherwise hurt by someone within the past year? If so, by whom?: No Do you feel safe in your current relationship?: Yes Is there a partner from a previous relationship who is making you feel unsafe now?: No Are you made to feel afraid or neglected: No Advance Directives: No Advance Directives Information Provided: Yes Do you have a plan to hurt others: No Plan Recently lost weight without trying: Unsure Eating poorly because of decreased appetite: No Nutrition Risks: No Nutritional Risk Poor oral hygiene: No Meds Allergies Allergy/AdvReac Type Severity Reaction Status Date / Time No Known Allergies Allergy Verified 08/21/25 18:30 Active Medications: Current Medications Acetaminophen (Acetaminophen 325 Mg Tablet) 650 mg PO Q6H PRN PRN Reason: Headache/Pain, Scale 1-10 Al Hydroxide/Mg Hydroxide (Magnesium Hydrox/Alum Hydrox 30 Ml Oral.Susp) 30 ml PO Q6H PRN PRN Reason: Heartburn/Nausea Bismuth Subsalicylate (Bismuth Subsalicylate 262 Mg Tablet) 524 mg PO DAILY PRN PRN Reason: Diarrhea Clonazepam (Clonazepam 1 Mg Tablet) 1 mg PO DAILY [facility] Escitalopram Oxalate (Escitalopram Oxalate 10 Mg Tablet) 10 mg PO DAILY [facility] Estradiol (Estradiol 0.5 Mg Tablet) 3 mg PO BID [facility] Last Admin: 08/21/25 20:25 Dose: 3 mg Fluticasone Propionate (Fluticasone Propionate Nasal 16 Gm [place]) 2 spray NOSTRIL-B DAILY PRN PRN Reason: allergies Hydroxyzine HCl (Hydroxyzine Hcl 25 Mg Tablet) 25 mg PO Q6H PRN PRN Reason: mild anxiety Hydroxyzine HCl (Hydroxyzine Hcl 50 Mg Tablet) 50 mg PO TID [facility] Last Admin: 08/21/25 20:40 Dose: 50 mg Magnesium Hydroxide (Milk Of Magnesia 30 Ml Oral.Susp) 30 ml PO DAILY PRN PRN Reason: Constipation Melatonin (Melatonin 3 Mg Tablet) 6 mg PO BEDTIME PRN PRN Reason: Insomnia Last Admin: 08/21/25 20:41 Dose: 6 mg Metformin HCl (Metformin Hcl Er 500 Mg Tab.Er.24h) 1,000 mg PO BID [facility] Last Admin: 08/21/25 20:41 Dose: 1,000 mg Nicotine (Nicotine 21 Mg Patch.Td24) 21 mg TRANSDERMA DAILY PRN PRN Reason: nicotine craving Nicotine Polacrilex (Nicotine Polacrilex 2 Mg Gum) 2 mg BUCCAL Q2H PRN PRN Reason: Nicotine Cravings Non-Formulary Medication (Tirzepatide [Mounjaro]) 2.5 mg SUBCUT Q7D [facility] Olanzapine (Olanzapine 5 Mg Tablet) 5 mg PO BID PRN PRN Reason: agitation Last Admin: 08/21/25 20:40 Dose: 5 mg Risperidone (Risperidone 1 Mg Tablet) 1 mg PO BID [facility] Last Admin: 08/21/25 20:42 Dose: 1 mg Spironolactone (Spironolactone 25 Mg Tablet) 100 mg PO BID [facility]; Protocol Last Admin: 08/21/25 20:41 Dose: 100 mg Topiramate (Topiramate 100 Mg Tablet) 100 mg PO BID [facility] Last Admin: 08/21/25 20:40 Dose: 100 mg Trazodone HCl (Trazodone Hcl 50 Mg Tablet) 50 mg PO BEDTIME MRX1 PRN PRN Reason: Insomnia Last Admin: 08/21/25 20:40 Dose: 50 mg Home Medications ?Medication ?Instructions ?Recorded ?Confirmed ?Last Taken ?Type bismuth subsalicylate 262 mg 2 tab PO NEEDED nausea/vomiting 08/21/25 08/21/25 Unknown History chewable tablet citalopram 20 mg tablet 20 mg PO QAM 08/21/25 08/21/25 Unknown History clonazepam 1 mg tablet 1 mg PO QAM anxiety 08/21/25 08/21/25 Unknown History estradiol 1 mg tablet 3 mg PO BID 08/21/25 08/21/25 Unknown History fluticasone propionate 50 2 spray intranasal DAILY PRN 08/21/25 08/21/25 Unknown History mcg/actuation nasal allergies spray,suspension hydroxyzine pamoate 50 mg capsule 50 mg PO TID 08/21/25 08/21/25 Unknown History melatonin 3 mg tablet 6 mg PO BEDTIME PRN insomnia 08/21/25 08/21/25 Unknown History metformin 500 mg tablet,extended 1,000 mg PO BID 08/21/25 08/21/25 Unknown History release 24 hr risperidone 1 mg tablet 1 mg PO BID 08/21/25 08/21/25 Unknown History spironolactone 100 mg tablet 100 mg PO BID 08/21/25 08/21/25 Unknown History tirzepatide 2.5 mg/0.5 mL 2.5 mg subcut QWEEK 08/21/25 08/21/25 Unknown History subcutaneous pen injector (Mounjaro) topiramate 100 mg tablet 100 mg PO BID 08/21/25 08/21/25 Unknown History Physical Exam Vital Signs and Narrative: Vital Signs: Last Vital Signs Temp 97.6 F 08/22/25 08:11 Pulse 74 08/22/25 08:11 Resp 20 08/22/25 08:11 BP 95/55 L 08/22/25 08:11 Pulse Ox 100 08/22/25 08:11 O2 Del Method Room Air 08/22/25 08:11 BMI result Body Mass Index 52.3 Alert and oriented X3, clam and cooperative. Answers questions. Neuro: CN II-X11 intact, no deficits, visual acuity intact EYES: PERRLA, EOM intact ENT: Hearing intact, MMM Cardiac: S1 S2 RRR, No ectopy Pulmonary: lungs clear to auscultation, No increased WOB. Abdominal: BS active in all 4 quadrants, no guarding or tenderness MSK: Strength 5/5 upper and lower extremities : Deferred Extremities: No edema in lower extremities Psych: Flat affect, Quiet and cooperative. Skin: Warm and dry, Intact Results Labs 08/22/25 08:56 Assessment and Plan (1) Type 2 diabetes mellitus: Status: Acute Plan 29-year-old male patient who identifies as female with past medical history as listed below admitted to inpatient psych with SI and HI. ADHD/major depressive disorder/anxiety disorder/autism spectrum disorder/disruptive mood dysregulation Treatment per psychiatric team Type 2 diabetes/obesity Continue metformin b.i.d. Check A1c Continue Andrea Speech disorder Not on meds Does not report any recent seizure activity Thank you for allowing me to participate in the care of this patient. Will follow with you, please notify medical provider with any changes in condition or concerns.
[2025-08-22] MEDS: Flu Vacc TS2025-26(6mo up)/PF 0.5 ML SYRINGE IM (09:33)
[2025-08-22 09:50] LABS: Alanine Aminotransferase 14 U/L (0-40); Albumin Level 4.8 g/dL (3.5-5.0); Alkaline Phosphatase 66 U/L (39-117); Anion Gap 13 (12-20); Aspartate Amino Transferase 19 U/L (5-37); Blood Urea Nitrogen 11 mg/dL (9-16); Calcium 9.6 mg/dL (8.4-10.2); Carbon Dioxide 21 mmol/L (22-29); Chloride 110 mmol/L (96-108); Cholesterol 199 mg/dL (<200); Creatinine Clr Calc Pharmacy 162.8; Estimated Glomerular Filt Rate > 60; HDL Cholesterol 32 mg/dL (>40); Potassium 3.9 mmol/L (3.3-5.1); Sodium 140 mmol/L (135-145); Total Protein 7.9 g/dL (6.5-8.0)
[2025-08-22 10:04] LABS: Free T4 (Free Thyroxine) 0.89 ng/dL (0.71-1.85); Thyroid Stimulating Hormone 1.60 uIU/mL (0.32-4.0); Triglycerides 169 mg/dL (<150)
[2025-08-22 14:00] VITALS: BP 128/87; PULSE 104; RESP 18; TEMP 36.8; O2SAT 96
--- NOTE | 2025-08-22 14:14 | ECG_ITS ---
Test Reason : dizzy Blood Pressure : */* mmHG Vent. Rate : 84 BPM Atrial Rate : 84 BPM P-R Int : 158 ms QRS Dur : 74 ms QT Int : 382 ms P-R-T Axes : 52 27 48 degrees QTcB Int : 451 ms Normal sinus rhythm Normal ECG No previous ECGs available Referred By: Humberto Cohen Electronically Signed By: SUJEY DAVID MD
--- NOTE | 2025-08-22 14:24 | PM.EVENT ---
Event Note Date of Service: 08/22/25 Event Note: Today during 1 of the groups, patient stood up and then said he got dizzy and sat back down. Patient continued to say he was dizzy. Patient said he was unable to move different body parts however he was certainly moving them when distracted. He would say he can not move his head but then when I asked him a question he would nod his head yes or no. Vitals were all WNL other than mildly tachycardic at 104. Patient's respiration rates were WNL; when he overheard medical underwriter asked nurse to monitor RR patient immediately started breathing faster. It took some time but cranial nerves 2-12 were grossly intact. Similar episode happened earlier this morning when patient was preparing for phlebotomy. Patient was able to get up and walk to his room and lie down on his own without assistance. -ordered an EKG out of an abundance of caution which was unremarkable Impression: Patient may have felt some dizziness when he stood up but subsequent symptoms appeared to be self-imposed and psychogenic Time Spent With Patient Time: Total time managing care of this patient today ____ minutes.
[2025-08-22 15:45] VITALS: BMI 52.2
[2025-08-22] MEDS: Bismuth Subsalicylate 262 MG TABLET 524 MG PO (15:52)
--- NOTE | 2025-08-22 16:06 | P.HPPS_ITS ---
HPI Date of Service: 08/22/25 Chief Complaint: major depression, recurrent severe Sources of Information: patient interviewed, chart reviewed and crisis/core team assessment reviewed Additional Sources of Information: Seen 115am HPI Subjective Notes: [place] Warning and Conditional Voluntary Healthcare Proxy: No Guardianship: Yes Medical Problems Affecting Mental Status: No Narrative: 29yo male to female, hx of recurrent major depression with psychosis, intellectual disability, autism,adhd, dm, asks to be called Juani, presents in transfer from [facility] and her custodial for SI with plan to run into traffic ( report indicates she actually did run into traffic) and to harm others. Reports SI since 08/20 with intermittent thoughts to end her life for a longer period of time. Precipitants not very clear, I did not want to take medicine for my throat . Reports feeling sad-trying to admit to respite, called crisis on Tuesday and they wanted her to have a re-evaluation and consult with their team. Reports poor sleep, waking up with voices, CAH to self harm. States she lives in a custodial, since 2017, with two other housemates who are new. They feel unsafe at the custodial as they fear someone is after them. Also, they report they prefer female housemates and current housemates are male. Past Psychiatric History: IP: Affirms- aMrtin Mejia [facility] Unit OP: Affirms- Chelo Acuna [facility], Therapist [phone] Psychopharm Matilde Velásquez [phone] PCP: Dr. Romo [phone] [facility] Employment Service Specialist, [place] [phone] SA: Denies attempts, affirms SI prior to this instance Pt reports they have a guardian, Hernandez Worthy of [facility], and does not have a Andrews's guardian. S Lorenzo Rodriguez- Director [phone] Dx: ADHD, Disruptive Mood Dysregulation disorder, Mild Intellectual Disability, Depression, Anxiety, Gender D/O, Autism, Medical Evaluation Reviewed: Yes [facility] Medical History (Updated 08/22/25 @ 17:02 by Tamie Lopez, [employer]) ADHD Autism Intellectual disability Severe recurrent major depression w/psychotic features, mood-congruent Family History: Denies Social History: Born in [place], Raised by both parents in [place], 3 sisters, 2 brothers. Describes a good childhood, Attended school, did not graduate, 2018 admitted to her custodial, parents are no longer involved, however she does talk with them sometimes. 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 Prefers female housemates, currently has male housemates. Substance History: Denies Trauma History: Denies Diagnostics Vital Signs (24Hr): Vital Signs - 24 hr 08/21/25 18:55 08/22/25 08:11 08/22/25 14:00 Temperature 99.1 F 97.6 F 98.2 F Pulse Rate 99 74 104 H Respiratory Rate 20 18 Blood Pressure 105/59 L 95/55 L 128/87 Pulse Oximetry 99 100 96 Oxygen Delivery Method Room Air Room Air Room Air BMI result Body Mass Index 52.2 Labs 08/22/25 08:56 Labs: Laboratory Results - last 48 hr 08/22/25 08:56 Sodium 140 Potassium 3.9 Chloride 110 H Carbon Dioxide 21 L Anion Gap 13 BUN 11 Creatinine 0.86 Estim Creat Clear Calc 162.8 Estimated GFR > 60 Random Glucose 93 Calcium 9.6 Total Bilirubin 0.5 AST 19 ALT 14 Alkaline Phosphatase 66 Total Protein 7.9 Albumin 4.8 Triglycerides 169 H Cholesterol 199 LDL Cholesterol, Calc 134 H HDL Cholesterol 32 L TSH 1.60 Free T4 0.89 HGB 13.3 HCT 40 CO2 20 Glucose 102 Toxicology negative EKG EKG: reviewed EKG Comment: NSR Rate 90 QTC 472 Meds/Allergies Meds Home Medications ?Medication ?Instructions ?Recorded ?Confirmed ?Type bismuth subsalicylate 262 mg 2 tab PO NEEDED nausea /vomiting 08/21/25 08/21/25 History chewable tablet citalopram 20 mg tablet 20 mg PO QAM 08/21/25 History clonazepam 1 mg tablet 1 mg PO QAM anxiety 08/21/25 08/21/25 History estradiol 1 mg tablet 3 mg PO BID 08/21/25 5 History fluticasone propionate 50 2 spray intranasal DAILY PRN 08/21/25 08/21/25 History mcg/actuation nasal allergies spray,suspension hydroxyzine pamoate 50 mg capsule 50 mg PO TID 5 08/21/25 History melatonin 3 mg tablet 6 mg PO BEDTIME PRN insomnia 08/21/25 08/21/25 History metformin 500 mg tablet,extended 1,000 mg PO BID 08/2108/21/25 History release 24 hr risperidone 1 mg tablet 1 mg PO BID 08/21/25 5 History spironolactone 100 mg tablet 100 mg PO BID 08/21/25 History tirzepatide 2.5 mg/0.5 mL 2.5 mg subcut QWEEK 08/21/25 08/21/25 History subcutaneous pen injector (Mounjaro) topiramate 100 mg tablet 100 mg PO BID 08/21/2508/21 History Allergies Allergies Allergy/AdvReac Type Severity Reaction Status Date / Time No Known Allergies Allergy Verified 08/21/25 18:30 Mental Status Exam Mental Status Exam Patient Appearance: Appropriate Patient Orientation: Person, Place, Time and Situation Level of Consciousness: Alert Patient Behavior: Talkative, Cooperative and Good Eye Contact Mood Description: Anxious and Apprehensive Affect Description: Anxious and Apprehensive Patient Cognition Impaired: Yes Ability to Follow Directions: Good Speech Pattern: Spontaneous Speech Memory Description: Intact Hallucinations: Auditory Delusions: Paranoid Ideation (people being out to harm her) Thought Process: Distracted and Rumination Thought Content: positive for Circumstantial, positive for Perseveration and positive for Suicidal Ideation Depressive Symptoms: Increased Anxiety and Thoughts of /Suicide Judgement: Poor Assessment & Plan Assessment & Plan (1) Severe recurrent major depression w/psychotic features, mood-congruent: Status: Acute Code(s): F33.3 - Major depressive disorder, recurrent, severe with psychotic symptoms (2) Intellectual disability: Status: Acute Code(s): F79 - Unspecified intellectual disabilities (3) Autism: Status: Acute Code(s): F84.0 - Autistic disorder (4) ADHD: Status: Acute Code(s): F90.9 - Attention-deficit hyperactivity disorder, unspecified type (5) Type 2 diabetes mellitus: Status: Acute Code(s): E11.9 - Type 2 diabetes mellitus without complications Plan 29yo male to female, hx of recurrent major depression with psychosis, intellectual disability, autism,adhd, dm, asks to be called Juani, presents in transfer from [facility] and her custodial for SI with plan to run into traffic ( report indicates she actually did run into traffic) and to harm others. Reports SI since 08/20 with intermittent thoughts to end her life for a longer period of time. Precipitants not very clear, I did not want to take medicine for my throat . Reports feeling sad-trying to admit to respite, called crisis on Tuesday and they wanted her to have a re-evaluation and consult with their team. Reports poor sleep, waking up with voices, CAH to self harm. States she lives in a custodial, since 2018, with two other housemates who are new. They feel unsafe at the custodial as they fear someone is after them. Also, they report they prefer female housemates and current housemates are male. Plan: Admit, CV, 15 minute checks Encourage full milieu Diagnostics as needed Collateral Contact Increase Risperdal to 1.5 mg bid to address CAH Continue remainder of regime Patient educated on: medication risk/benefits Informed Consent: further education needed Reason for continued inpatient stay Substantial Risk for: harm to self and rapid decompensation Statement Statement: I have reviewed the history and physical and performed a pertinent examination on my patient. No changes have occurred unless specified. If the History and Physical was not performed prior to admission, the Hospitalist's service will be consulted for completing the admission physical. Time Spent With Patient Time: Total time managing care of this patient today ____ minutes.
[2025-08-22 20:00] VITALS: BP 116/62; PULSE 96; RESP 16; TEMP 36.3; O2SAT 100
[2025-08-23 09:20] VITALS: BP 108/56; PULSE 112; RESP 20; TEMP 36.6; O2SAT 100
--- NOTE | 2025-08-23 12:41 | HO.PSYCHPN ---
Subjective Subjective Date of Service: 08/23/25 Reason For Visit: major depression, recurrent severe Subjective Notes: Conditional Voluntary Healthcare Proxy: No Guardianship: No Medical Problems Affecting Mental Status: No Interim History: Tolerating increase in Risperdal. Reports feeling safe on the unit. Asks for a team meeting with residence and providers to discuss a respite transition. Discussed two episodes of feeling faint yesterday, denies feeling she is overmedicated, this just happens. Team is talking with pts OP care team and we are learning of pt's coping mechanisms and patterns of behavior. Pt is attending group, she is asking today about beginning to journal which she has started this afternoon. She is visable in the milieu and interactive with peers. Medication Compliance: Yes Side effects from medications: No Attending Groups: Yes Review of Systems Acute medical concerns: No Medical Review of Systems: unchanged Review of Systems Review of Systems Denies Mental Status Exam Mental Status Exam Patient Appearance: Appropriate Patient Orientation: Person, Place, Time and Situation Level of Consciousness: Alert Patient Behavior: Talkative, Cooperative and Good Eye Contact Mood Description: Anxious and Apprehensive Affect Description: Anxious and Apprehensive Patient Cognition Impaired: Yes Ability to Follow Directions: Good Speech Pattern: Spontaneous Speech Memory Description: Intact Hallucinations: Auditory Delusions: Paranoid Ideation (people being out to harm her) Thought Process: Distracted and Rumination Thought Content: positive for Circumstantial, positive for Perseveration and positive for Suicidal Ideation Depressive Symptoms: Increased Anxiety and Thoughts of /Suicide Judgement: Poor Diagnostics Vital Signs (24Hr): Vital Signs - 24 hr 08/22/25 14:00 08/22/25 20:00 08/23/25 09:20 Temperature 98.2 F 97.4 F 97.8 F Pulse Rate 104 H 96 112 H Respiratory Rate 18 16 20 Blood Pressure 128/87 116/62 108/56 L Pulse Oximetry 96 100 100 Oxygen Delivery Method Room Air Room Air Room Air BMI result Body Mass Index 52.2 Labs 08/22/25 08:56 Labs: Laboratory Results - last 48 hr 08/22/25 08/23/25 08:56 08:08 Sodium 140 Potassium 3.9 Chloride 110 H Carbon Dioxide 21 L Anion Gap 13 BUN 11 Creatinine 0.86 Estim Creat Clear Calc 162.8 Estimated GFR > 60 Random Glucose 93 Estimat Average Glucose 91 Hemoglobin A1c % 4.8 Calcium 9.6 Total Bilirubin 0.5 AST 19 ALT 14 Alkaline Phosphatase 66 Total Protein 7.9 Albumin 4.8 Triglycerides 169 H Cholesterol 199 LDL Cholesterol, Calc 134 H HDL Cholesterol 32 L TSH 1.60 Free T4 0.89 Medications Medications Current Medications Acetaminophen (Acetaminophen 325 Mg Tablet) 650 mg PO Q6H PRN PRN Reason: Headache/Pain, Scale 1-10 Al Hydroxide/Mg Hydroxide (Magnesium Hydrox/Alum Hydrox 30 Ml Oral.Susp) 30 ml PO Q6H PRN PRN Reason: Heartburn/Nausea Bismuth Subsalicylate (Bismuth Subsalicylate 262 Mg Tablet) 524 mg PO DAILY PRN PRN Reason: Diarrhea Last Admin: 08/22/25 15:52 Dose: 524 mg Clonazepam (Clonazepam 1 Mg Tablet) 1 mg PO DAILY [facility] Last Admin: 08/23/25 09:16 Dose: 1 mg Escitalopram Oxalate (Escitalopram Oxalate 10 Mg Tablet) 10 mg PO DAILY [facility] Last Admin: 08/23/25 09:17 Dose: 10 mg Estradiol (Estradiol 0.5 Mg Tablet) 3 mg PO BID [facility] Last Admin: 08/23/25 09:26 Dose: 3 mg Fluticasone Propionate (Fluticasone Propionate Nasal 16 Gm [place]) 2 spray NOSTRIL-B DAILY PRN PRN Reason: allergies Hydroxyzine HCl (Hydroxyzine Hcl 25 Mg Tablet) 25 mg PO Q6H PRN PRN Reason: mild anxiety Hydroxyzine HCl (Hydroxyzine Hcl 50 Mg Tablet) 50 mg PO TID [facility] Last Admin: 08/23/25 09:14 Dose: 50 mg Magnesium Hydroxide (Milk Of Magnesia 30 Ml Oral.Susp) 30 ml PO DAILY PRN PRN Reason: Constipation Melatonin (Melatonin 3 Mg Tablet) 6 mg PO BEDTIME PRN PRN Reason: Insomnia Last Admin: 08/22/25 20:29 Dose: 6 mg Metformin HCl (Metformin Hcl Er 500 Mg Tab.Er.24h) 1,000 mg PO BID [facility] Last Admin: 08/23/25 09:15 Dose: 1,000 mg Multivitamins/Vitamin C (Multivitamin Tablet) 1 tab PO DAILY [facility] Last Admin: 08/23/25 09:16 Dose: 1 tab Nicotine (Nicotine 21 Mg Patch.Td24) 21 mg TRANSDERMA DAILY PRN PRN Reason: nicotine craving Nicotine Polacrilex (Nicotine Polacrilex 2 Mg Gum) 2 mg BUCCAL Q2H PRN PRN Reason: Nicotine Cravings Non-Formulary Medication (Tirzepatide [Mounjaro]) 2.5 mg SUBCUT Q7D [facility] Olanzapine (Olanzapine 5 Mg Tablet) 5 mg PO BID PRN PRN Reason: agitation Last Admin: 08/22/25 20:30 Dose: 5 mg Ondansetron HCl (Ondansetron Odt 4 Mg Tab.Rapdis) 4 mg TRANSLINGU Q12H PRN PRN Reason: Nausea and Vomiting Last Admin: 08/22/25 18:41 Dose: 4 mg Risperidone (Risperidone 0.5 Mg Tablet) 1.5 mg PO BID [facility] Last Admin: 08/23/25 09:15 Dose: 1.5 mg Spironolactone (Spironolactone 25 Mg Tablet) 100 mg PO BID [facility]; Protocol Last Admin: 08/23/25 09:21 Dose: 100 mg Topiramate (Topiramate 100 Mg Tablet) 100 mg PO BID [facility] Last Admin: 08/23/25 09:16 Dose: 100 mg Trazodone HCl (Trazodone Hcl 50 Mg Tablet) 50 mg PO BEDTIME MRX1 PRN PRN Reason: Insomnia Last Admin: 08/22/25 20:30 Dose: 50 mg Allergies Allergies Allergy/AdvReac Type Severity Reaction Status Date / Time No Known Allergies Allergy Verified 08/21/25 18:30 Assessment & Plan Assessment & Plan (1) Severe recurrent major depression w/psychotic features, mood-congruent: Status: Acute Code(s): F33.3 - Major depressive disorder, recurrent, severe with psychotic symptoms (2) Intellectual disability: Status: Acute Code(s): F79 - Unspecified intellectual disabilities (3) Autism: Status: Acute Code(s): F84.0 - Autistic disorder (4) ADHD: Status: Acute Code(s): F90.9 - Attention-deficit hyperactivity disorder, unspecified type (5) Type 2 diabetes mellitus: Status: Acute Code(s): E11.9 - Type 2 diabetes mellitus without complications Plan 29yo male to female, hx of recurrent major depression with psychosis, intellectual disability, autism,adhd, dm, asks to be called Juani, presents in transfer from [facility] and her correction for SI with plan to run into traffic ( report indicates she actually did run into traffic) and to harm others. Reports SI since 08/20 with intermittent thoughts to end her life for a longer period of time. Precipitants not very clear, I did not want to take medicine for my throat . Reports feeling sad-trying to admit to respite, called crisis on Tuesday and they wanted her to have a re-evaluation and consult with their team. Reports poor sleep, waking up with voices, CAH to self harm. States she lives in a correction, since 2017, with two other housemates who are new. They feel unsafe at the correction as they fear someone is after them. Also, they report they prefer female housemates and current housemates are male. 08/23/25: Continue tx Plan: Admit, CV, 15 minute checks Encourage full milieu Diagnostics as needed Collateral Contact Increase Risperdal to 1.5 mg bid to address CAH Continue remainder of regime Reason for continued inpatient stay Substantial Risk for: rapid decompensation Time Spent With Patient Time: Total time managing care of this patient today ____ minutes.
[2025-08-23] MEDS: Bismuth Subsalicylate 262 MG TABLET 524 MG PO ×2 (17:16→21:35)
[2025-08-23 20:00] VITALS: BP 126/69; TEMP 36
[2025-08-23 20:36] VITALS: BP 126/69
--- NOTE | 2025-08-23 21:13 | PC.NURSE ---
Patient complained of ongoing diarrhea. Contacted Provider Joann Lozada, who stated that this sql report writer could administer 524 mg of Pepto Bismol a second time.
[2025-08-24 08:00] VITALS: BP 86/57; PULSE 89; RESP 18; TEMP 36.6; O2SAT 98
[2025-08-24 08:55] VITALS: BP 108/57; PULSE 84
--- NOTE | 2025-08-24 13:13 | P.PNPSI_ITS ---
Subjective Subjective Date of Service: 08/24/25 Reason For Visit: major depression, recurrent severe Interim History: Active on unit. keeping to self. pacing unit hallway while listening to music. Patient reports feeling depressed; pt stated, I still want to get hit by a car. I don't know why . +AH telling them to hurt themseleves . denies HI/VH. Pt reports sleeping well last night. continue tx plan. Mental Status Exam Mental Status Exam Patient Appearance: Appropriate Patient Orientation: Person, Place, Time and Situation Level of Consciousness: Awake and Alert Patient Behavior: Appropriate and Anxious Mood Description: Calm Affect Description: Anxious Ability to Follow Directions: Good Speech Pattern: Soft-Spoken Hallucinations: Auditory Thought Process: Intact Thought Content: positive for Intact Diagnostics Vital Signs (24Hr): Vital Signs - 24 hr 08/23/25 20:00 08/23/25 20:36 08/24/25 08:00 Temperature 96.8 F 98 F Pulse Rate 89 Respiratory Rate 18 Blood Pressure 126/69 126/69 86/57 L Pulse Oximetry 98 Oxygen Delivery Method Room Air 08/24/25 08:55 Temperature Pulse Rate 84 Respiratory Rate Blood Pressure 108/57 L Pulse Oximetry Oxygen Delivery Method BMI result Body Mass Index 52.2 Labs 08/22/25 08:56 Labs: Laboratory Results - last 48 hr 08/23/25 08:08 Estimat Average Glucose 91 Hemoglobin A1c % 4.8 Medications Medications Current Medications Acetaminophen (Acetaminophen 325 Mg Tablet) 650 mg PO Q6H PRN PRN Reason: Headache/Pain, Scale 1-10 Al Hydroxide/Mg Hydroxide (Magnesium Hydrox/Alum Hydrox 30 Ml Oral.Susp) 30 ml PO Q6H PRN PRN Reason: Heartburn/Nausea Bismuth Subsalicylate (Bismuth Subsalicylate 262 Mg Tablet) 524 mg PO DAILY PRN PRN Reason: Diarrhea Last Admin: 08/23/25 21:35 Dose: 524 mg Clonazepam (Clonazepam 1 Mg Tablet) 1 mg PO DAILY [facility] Last Admin: 08/24/25 08:57 Dose: 1 mg Escitalopram Oxalate (Escitalopram Oxalate 10 Mg Tablet) 10 mg PO DAILY [facility] Last Admin: 08/24/25 08:57 Dose: 10 mg Estradiol (Estradiol 0.5 Mg Tablet) 3 mg PO BID [facility] Last Admin: 08/24/25 08:59 Dose: 3 mg Fluticasone Propionate (Fluticasone Propionate Nasal 16 Gm [place]) 2 spray NOSTRIL-B DAILY PRN PRN Reason: allergies Hydroxyzine HCl (Hydroxyzine Hcl 25 Mg Tablet) 25 mg PO Q6H PRN PRN Reason: mild anxiety Hydroxyzine HCl (Hydroxyzine Hcl 50 Mg Tablet) 50 mg PO TID [facility] Last Admin: 08/24/25 08:57 Dose: 50 mg Magnesium Hydroxide (Milk Of Magnesia 30 Ml Oral.Susp) 30 ml PO DAILY PRN PRN Reason: Constipation Melatonin (Melatonin 3 Mg Tablet) 6 mg PO BEDTIME PRN PRN Reason: Insomnia Last Admin: 08/22/25 20:29 Dose: 6 mg Metformin HCl (Metformin Hcl Er 500 Mg Tab.Er.24h) 1,000 mg PO BID [facility] Last Admin: 08/24/25 08:57 Dose: 1,000 mg Multivitamins/Vitamin C (Multivitamin Tablet) 1 tab PO DAILY [facility] Last Admin: 08/24/25 08:58 Dose: 1 tab Nicotine (Nicotine 21 Mg Patch.Td24) 21 mg TRANSDERMA DAILY PRN PRN Reason: nicotine craving Nicotine Polacrilex (Nicotine Polacrilex 2 Mg Gum) 2 mg BUCCAL Q2H PRN PRN Reason: Nicotine Cravings Non-Formulary Medication (Tirzepatide [Mounjaro]) 2.5 mg SUBCUT Q7D [facility] Olanzapine (Olanzapine 5 Mg Tablet) 5 mg PO BID PRN PRN Reason: agitation Last Admin: 08/22/25 20:30 Dose: 5 mg Ondansetron HCl (Ondansetron Odt 4 Mg Tab.Rapdis) 4 mg TRANSLINGU Q12H PRN PRN Reason: Nausea and Vomiting Last Admin: 08/23/25 17:16 Dose: 4 mg Risperidone (Risperidone 0.5 Mg Tablet) 1.5 mg PO BID [facility] Last Admin: 08/24/25 08:58 Dose: 1.5 mg Spironolactone (Spironolactone 25 Mg Tablet) 100 mg PO BID [facility]; Protocol Last Admin: 08/24/25 08:58 Dose: 100 mg Topiramate (Topiramate 100 Mg Tablet) 100 mg PO BID [facility] Last Admin: 08/24/25 08:58 Dose: 100 mg Trazodone HCl (Trazodone Hcl 50 Mg Tablet) 50 mg PO BEDTIME MRX1 PRN PRN Reason: Insomnia Last Admin: 08/23/25 20:36 Dose: 50 mg Allergies Allergies Allergy/AdvReac Type Severity Reaction Status Date / Time No Known Allergies Allergy Verified 08/21/25 18:30 Assessment & Plan Assessment & Plan (1) Severe recurrent major depression w/psychotic features, mood-congruent: Status: Acute Code(s): F33.3 - Major depressive disorder, recurrent, severe with psychotic symptoms (2) Intellectual disability: Status: Acute Code(s): F79 - Unspecified intellectual disabilities (3) Autism: Status: Acute Code(s): F84.0 - Autistic disorder (4) ADHD: Status: Acute Code(s): F90.9 - Attention-deficit hyperactivity disorder, unspecified type (5) Type 2 diabetes mellitus: Status: Acute Code(s): E11.9 - Type 2 diabetes mellitus without complications Plan 29yo male to female, hx of recurrent major depression with psychosis, intellectual disability, autism,adhd, dm, asks to be called Juani, presents in transfer from [facility] and her intermediate for SI with plan to run into traffic ( report indicates she actually did run into traffic) and to harm others. Reports SI since 08/20 with intermittent thoughts to end her life for a longer period of time. Precipitants not very clear, I did not want to take medicine for my throat . Reports feeling sad-trying to admit to respite, called crisis on Tuesday and they wanted her to have a re-evaluation and consult with their team. Reports poor sleep, waking up with voices, CAH to self harm. States she lives in a intermediate, since 2017, with two other housemates who are new. They feel unsafe at the intermediate as they fear someone is after them. Also, they report they prefer female housemates and current housemates are male. 08/23/25: Continue tx 08/24: continue tx plan. Plan: Admit, CV, 15 minute checks Encourage full milieu Diagnostics as needed Collateral Contact Increase Risperdal to 1.5 mg bid to address CAH Continue remainder of regime Patient educated on: diagnosis and medication risk/benefits Reason for continued inpatient stay Substantial Risk for: med/psych decompensation Time Spent With Patient Time: Total time managing care of this patient today _15___ minutes.
[2025-08-24] MEDS: Bismuth Subsalicylate 262 MG TABLET 524 MG PO (17:44)
[2025-08-25] MEDS: Bismuth Subsalicylate 262 MG TABLET 524 MG PO (02:47)
[2025-08-25 08:00] VITALS: BP 98/49; PULSE 81; RESP 18; TEMP 36.3; O2SAT 98
--- NOTE | 2025-08-25 11:38 | HO.PSYCHPN ---
Subjective Subjective Date of Service: 08/25/25 Reason For Visit: major depression, recurrent severe Interim History: Laying down, trying to nap. Patient continues to report feeling depressed; reports having thoughts of self harm but denies SI. denies HI/VH/AH. continue tx plan. Medication Compliance: Yes Side effects from medications: No Mental Status Exam Mental Status Exam Patient Appearance: Appropriate Patient Orientation: Person, Place, Time and Situation Level of Consciousness: Awake and Alert Patient Behavior: Appropriate and Anxious Mood Description: Calm Affect Description: Anxious Patient Cognition Impaired: Yes Ability to Follow Directions: Good Speech Pattern: Soft-Spoken Memory Description: Intact Hallucinations: None Delusions: Not Present Thought Process: Intact Thought Content: positive for Intact Diagnostics Vital Signs (24Hr): Vital Signs - 24 hr 08/25/25 08:00 Temperature 97.3 F Pulse Rate 81 Respiratory Rate 18 Blood Pressure 98/49 L Pulse Oximetry 98 Oxygen Delivery Method Room Air BMI result Body Mass Index 52.2 Labs 08/22/25 08:56 Medications Medications Current Medications Acetaminophen (Acetaminophen 325 Mg Tablet) 650 mg PO Q6H PRN PRN Reason: Headache/Pain, Scale 1-10 Al Hydroxide/Mg Hydroxide (Magnesium Hydrox/Alum Hydrox 30 Ml Oral.Susp) 30 ml PO Q6H PRN PRN Reason: Heartburn/Nausea Bismuth Subsalicylate (Bismuth Subsalicylate 262 Mg Tablet) 524 mg PO DAILY PRN PRN Reason: Diarrhea Last Admin: 08/25/25 02:47 Dose: 524 mg Clonazepam (Clonazepam 1 Mg Tablet) 1 mg PO DAILY [facility] Last Admin: 08/25/25 08:38 Dose: 1 mg Escitalopram Oxalate (Escitalopram Oxalate 10 Mg Tablet) 10 mg PO DAILY [facility] Last Admin: 08/25/25 08:38 Dose: 10 mg Estradiol (Estradiol 0.5 Mg Tablet) 3 mg PO BID [facility] Last Admin: 08/25/25 08:36 Dose: 3 mg Fluticasone Propionate (Fluticasone Propionate Nasal 16 Gm [employer]) 2 spray NOSTRIL-B DAILY PRN PRN Reason: allergies Hydroxyzine HCl (Hydroxyzine Hcl 25 Mg Tablet) 25 mg PO Q6H PRN PRN Reason: mild anxiety Hydroxyzine HCl (Hydroxyzine Hcl 50 Mg Tablet) 50 mg PO TID [facility] Last Admin: 08/25/25 08:35 Dose: 50 mg Magnesium Hydroxide (Milk Of Magnesia 30 Ml Oral.Susp) 30 ml PO DAILY PRN PRN Reason: Constipation Melatonin (Melatonin 3 Mg Tablet) 6 mg PO BEDTIME PRN PRN Reason: Insomnia Last Admin: 08/22/25 20:29 Dose: 6 mg Metformin HCl (Metformin Hcl Er 500 Mg Tab.Er.24h) 1,000 mg PO BID [facility] Last Admin: 08/25/25 08:37 Dose: 1,000 mg Multivitamins/Vitamin C (Multivitamin Tablet) 1 tab PO DAILY [facility] Last Admin: 08/25/25 08:37 Dose: 1 tab Nicotine (Nicotine 21 Mg Patch.Td24) 21 mg TRANSDERMA DAILY PRN PRN Reason: nicotine craving Nicotine Polacrilex (Nicotine Polacrilex 2 Mg Gum) 2 mg BUCCAL Q2H PRN PRN Reason: Nicotine Cravings Olanzapine (Olanzapine 5 Mg Tablet) 5 mg PO BID PRN PRN Reason: agitation Last Admin: 08/22/25 20:30 Dose: 5 mg Ondansetron HCl (Ondansetron Odt 4 Mg Tab.Rapdis) 4 mg TRANSLINGU Q12H PRN PRN Reason: Nausea and Vomiting Last Admin: 08/23/25 17:16 Dose: 4 mg Risperidone (Risperidone 0.5 Mg Tablet) 1.5 mg PO BID [facility] Last Admin: 08/25/25 08:38 Dose: 1.5 mg Spironolactone (Spironolactone 25 Mg Tablet) 100 mg PO BID [facility]; Protocol Last Admin: 08/25/25 08:34 Dose: 100 mg Topiramate (Topiramate 100 Mg Tablet) 100 mg PO BID [facility] Last Admin: 08/25/25 08:38 Dose: 100 mg Trazodone HCl (Trazodone Hcl 50 Mg Tablet) 50 mg PO BEDTIME MRX1 PRN PRN Reason: Insomnia Last Admin: 08/24/25 20:41 Dose: 50 mg Allergies Allergies Allergy/AdvReac Type Severity Reaction Status Date / Time No Known Allergies Allergy Verified 08/21/25 18:30 Assessment & Plan Assessment & Plan (1) Severe recurrent major depression w/psychotic features, mood-congruent: Status: Acute Code(s): F33.3 - Major depressive disorder, recurrent, severe with psychotic symptoms (2) Intellectual disability: Status: Acute Code(s): F79 - Unspecified intellectual disabilities (3) Autism: Status: Acute Code(s): F84.0 - Autistic disorder (4) ADHD: Status: Acute Code(s): F90.9 - Attention-deficit hyperactivity disorder, unspecified type (5) Type 2 diabetes mellitus: Status: Acute Code(s): E11.9 - Type 2 diabetes mellitus without complications Plan 29yo male to female, hx of recurrent major depression with psychosis, intellectual disability, autism,adhd, dm, asks to be called [facility], presents in transfer from [facility] and her [facility] for SI with plan to run into traffic ( report indicates she actually did run into traffic) and to harm others. Reports SI since 08/20 with intermittent thoughts to end her life for a longer period of time. Precipitants not very clear, I did not want to take medicine for my throat . Reports feeling sad-trying to admit to respite, called crisis on Tuesday and they wanted her to have a re-evaluation and consult with their team. Reports poor sleep, waking up with voices, CAH to self harm. States she lives in a ch[facility], since 2017, with two other housemates who are new. They feel unsafe at the chcf as they fear someone is after them. Also, they report they prefer female housemates and current housemates are male. 08/23/25: Continue tx 08/24: continue tx plan. 08/25:Laying down, trying to nap. Patient continues to report feeling depressed; reports having thoughts of self harm but denies SI. denies HI/VH/AH. continue tx plan. Plan: Admit, CV, 15 minute checks Encourage full milieu Diagnostics as needed Collateral Contact Increase Risperdal to 1.5 mg bid to address CAH Continue remainder of regime Patient educated on: diagnosis, medication risk/benefits and therapeutic strategies Reason for continued inpatient stay Substantial Risk for: med/psych decompensation Time Spent With Patient Time: Total time managing care of this patient today _15___ minutes.
[2025-08-25 20:00] VITALS: BP 126/68; PULSE 87; RESP 16; TEMP 36.4; O2SAT 100
[2025-08-25 20:51] VITALS: BP 126/62
[2025-08-26 08:42] VITALS: BP 130/72; PULSE 108; TEMP 36.4; O2SAT 95
--- NOTE | 2025-08-26 09:45 | HO.PSYCHPN ---
Subjective Subjective Date of Service: 08/26/25 Reason For Visit: major depression, recurrent severe Subjective Notes: 3 Day (08/29) Healthcare Proxy: No Guardianship: No Medical Problems Affecting Mental Status: No Interim History: Continues to report depression, anxiety, voices, with a decrease in intensity in all of these sx. Behavioral plan in place with team. Discussed her upcoming team meeting for 08/27-identified issues she would like to discuss-going to respite, having female room-mates instead of male room-mates, and needing time away from her program for a break (this is her rationale for respite). Medication Compliance: Yes Side effects from medications: No Attending Groups: Intermittent Review of Systems Acute medical concerns: No Medical Review of Systems: unchanged Review of Systems Review of Systems Denies Mental Status Exam Mental Status Exam Patient Appearance: Fatigued Patient Orientation: Person, Place, Time and Situation Level of Consciousness: Alert Patient Behavior: Appropriate, Talkative, Passive, Anxious and Good Eye Contact Mood Description: Flat Affect Description: Flat Patient Cognition Impaired: No Ability to Follow Directions: Good Speech Pattern: Spontaneous Speech, Soft-Spoken and Delayed Memory Description: Episodic Impaired Hallucinations: Auditory Delusions: Not Present Perceptual Disturbances: Depersonalization and Derealization Thought Process: Rumination Thought Content: positive for Circumstantial, positive for Perseveration and positive for Suicidal Ideation (denies) Depressive Symptoms: Thoughts of /Suicide (denies) Judgement: Fair Diagnostics Vital Signs (24Hr): Vital Signs - 24 hr 08/25/25 20:00 08/25/25 20:51 08/26/25 08:42 Temperature 97.6 F Pulse Rate 87 Respiratory Rate 16 Blood Pressure 126/68 126/62 130/72 Pulse Oximetry 100 Oxygen Delivery Method Room Air 08/26/25 08:42 Temperature 97.5 F Pulse Rate 108 H Respiratory Rate Blood Pressure 130/72 Pulse Oximetry 95 Oxygen Delivery Method Room Air BMI result Body Mass Index 52.2 Labs 08/22/25 08:56 Medications Medications Current Medications Acetaminophen (Acetaminophen 325 Mg Tablet) 650 mg PO Q6H PRN PRN Reason: Headache/Pain, Scale 1-10 Al Hydroxide/Mg Hydroxide (Magnesium Hydrox/Alum Hydrox 30 Ml Oral.Susp) 30 ml PO Q6H PRN PRN Reason: Heartburn/Nausea Bismuth Subsalicylate (Bismuth Subsalicylate 262 Mg Tablet) 524 mg PO DAILY PRN PRN Reason: Diarrhea Last Admin: 08/25/25 02:47 Dose: 524 mg Clonazepam (Clonazepam 1 Mg Tablet) 1 mg PO DAILY [facility] Last Admin: 08/26/25 08:42 Dose: 1 mg Escitalopram Oxalate (Escitalopram Oxalate 10 Mg Tablet) 10 mg PO DAILY [facility] Last Admin: 08/26/25 08:43 Dose: 10 mg Estradiol (Estradiol 0.5 Mg Tablet) 3 mg PO BID [facility] Last Admin: 08/26/25 08:42 Dose: 3 mg Fluticasone Propionate (Fluticasone Propionate Nasal 16 Gm [place]) 2 spray NOSTRIL-B DAILY PRN PRN Reason: allergies Hydroxyzine HCl (Hydroxyzine Hcl 25 Mg Tablet) 25 mg PO Q6H PRN PRN Reason: mild anxiety Hydroxyzine HCl (Hydroxyzine Hcl 50 Mg Tablet) 50 mg PO TID [facility] Last Admin: 08/26/25 08:42 Dose: 50 mg Magnesium Hydroxide (Milk Of Magnesia 30 Ml Oral.Susp) 30 ml PO DAILY PRN PRN Reason: Constipation Melatonin (Melatonin 3 Mg Tablet) 6 mg PO BEDTIME PRN PRN Reason: Insomnia Last Admin: 08/25/25 20:52 Dose: 6 mg Metformin HCl (Metformin Hcl Er 500 Mg Tab.Er.24h) 1,000 mg PO BID [facility] Last Admin: 08/26/25 08:43 Dose: 1,000 mg Multivitamins/Vitamin C (Multivitamin Tablet) 1 tab PO DAILY [facility] Last Admin: 08/26/25 08:42 Dose: 1 tab Nicotine (Nicotine 21 Mg Patch.Td24) 21 mg TRANSDERMA DAILY PRN PRN Reason: nicotine craving Nicotine Polacrilex (Nicotine Polacrilex 2 Mg Gum) 2 mg BUCCAL Q2H PRN PRN Reason: Nicotine Cravings Olanzapine (Olanzapine 5 Mg Tablet) 5 mg PO BID PRN PRN Reason: agitation Last Admin: 08/22/25 20:30 Dose: 5 mg Ondansetron HCl (Ondansetron Odt 4 Mg Tab.Rapdis) 4 mg TRANSLINGU Q12H PRN PRN Reason: Nausea and Vomiting Last Admin: 08/23/25 17:16 Dose: 4 mg Risperidone (Risperidone 0.5 Mg Tablet) 1.5 mg PO BID [facility] Last Admin: 08/26/25 08:42 Dose: 1.5 mg Spironolactone (Spironolactone 25 Mg Tablet) 100 mg PO BID [facility]; Protocol Last Admin: 08/26/25 08:42 Dose: 100 mg Topiramate (Topiramate 100 Mg Tablet) 100 mg PO BID [facility] Last Admin: 08/26/25 08:42 Dose: 100 mg Trazodone HCl (Trazodone Hcl 50 Mg Tablet) 50 mg PO BEDTIME MRX1 PRN PRN Reason: Insomnia Last Admin: 08/25/25 20:52 Dose: 50 mg Allergies Allergies Allergy/AdvReac Type Severity Reaction Status Date / Time No Known Allergies Allergy Verified 08/21/25 18:30 Assessment & Plan Assessment & Plan (1) Severe recurrent major depression w/psychotic features, mood-congruent: Status: Acute Code(s): F33.3 - Major depressive disorder, recurrent, severe with psychotic symptoms (2) Intellectual disability: Status: Acute Code(s): F79 - Unspecified intellectual disabilities (3) Autism: Status: Acute Code(s): F84.0 - Autistic disorder (4) ADHD: Status: Acute Code(s): F90.9 - Attention-deficit hyperactivity disorder, unspecified type (5) Type 2 diabetes mellitus: Status: Acute Code(s): E11.9 - Type 2 diabetes mellitus without complications Plan 29yo male to female, hx of recurrent major depression with psychosis, intellectual disability, autism,adhd, dm, asks to be called [facility], presents in transfer from [facility] and her long-term for SI with plan to run into traffic ( report indicates she actually did run into traffic) and to harm others. Reports SI since 08/20 with intermittent thoughts to end her life for a longer period of time. Precipitants not very clear, I did not want to take medicine for my throat . Reports feeling sad-trying to admit to respite, called crisis on Tuesday and they wanted her to have a re-evaluation and consult with their team. Reports poor sleep, waking up with voices, CAH to self harm. States she lives in a long-term, since 2018, with two other housemates who are new. They feel unsafe at the long-term as they fear someone is after them. Also, they report they prefer female housemates and current housemates are male. 08/23/25: Continue tx 08/24: continue tx plan. 08/25:Laying down, trying to nap. Patient continues to report feeling depressed; reports having thoughts of self harm but denies SI. denies HI/VH/AH. continue tx plan. 08/26: TDN to 08/29. Wanting to move forward Team meeting 08/27. Plan: Admit, CV, 15 minute checks Encourage full milieu Diagnostics as needed Collateral Contact Increase Risperdal to 1.5 mg bid to address CAH Continue remainder of regime Patient educated on: therapeutic strategies Informed Consent: understands Reason for continued inpatient stay Substantial Risk for: rapid decompensation Time Spent With Patient Time: Total time managing care of this patient today ____ minutes.
--- NOTE | 2025-08-26 11:09 | PC.NURSE ---
Patient has signed a 3 Day Notice--which will be up on 08/29/25.
[2025-08-26 19:50] VITALS: BP 121/63; PULSE 96; TEMP 37.3; O2SAT 96
[2025-08-26 20:10] VITALS: BP 121/63
[2025-08-27 08:28] VITALS: BP 112/68; PULSE 85; RESP 20; TEMP 36.1; O2SAT 97
--- NOTE | 2025-08-27 08:58 | P.PNPSI_ITS ---
Subjective Subjective Date of Service: 08/27/25 Reason For Visit: major depression, recurrent severe Subjective Notes: Conditional Voluntary Healthcare Proxy: No Guardianship: No Medical Problems Affecting Mental Status: No Interim History: Team meeting with pt's residence, [facility], day program and out pt therapist and prescriber, Gerson STATON. Team updated regarding medicine changes, behaviors exhibited and behavioral plan. Pt is asking for a respite stay. [facility] believes this is not an appropriate level of care for pt as it is an open program-people come and go at will and pt requires a more intensive level of support and supervision. OP team has heard pt discussing SI, CAH to suicide, get hit by a car. They have encouraged her to be in contact with crisis and go throught the steps which all offer her support. Team discussed complex PTSD and attachment symptoms, parents rejection of pt, issues pt has identified in her relationship, coping and assertiveness behaviors and issues with her self esteem, along with interventions to promote improved coping. Team brought up the idea of having pt return to the retirement on 08/29, the end of her three day notice of intent, and trialing a PHP program which Gerson STATON will check into with [facility]. Team also discussed possible future plans for increased DBT exposure and residential changes. Pt joined the meeting and is in agreement with PHP trial. Medication Compliance: Yes Side effects from medications: No Attending Groups: No Review of Systems Acute medical concerns: No Medical Review of Systems: unchanged Review of Systems Review of Systems Denies today Mental Status Exam Mental Status Exam Patient Appearance: Appropriate Patient Orientation: Person, Place, Time and Situation Level of Consciousness: Alert Patient Behavior: Talkative and Good Eye Contact Mood Description: Anxious and Apprehensive Affect Description: Anxious and Apprehensive Patient Cognition Impaired: Yes Ability to Follow Directions: Good Speech Pattern: Spontaneous Speech and Delayed Memory Description: Episodic Impaired Hallucinations: Auditory Perceptual Disturbances: Depersonalization and Derealization Thought Process: Goal Oriented Thought Content: positive for Goal Oriented and positive for Suicidal Ideation (denied) Depressive Symptoms: Thoughts of /Suicide (denied) Abnormal Motor Activity Signs and Symptoms: Restlessness Judgement: Fair Diagnostics Vital Signs (24Hr): Vital Signs - 24 hr 08/26/25 19:50 08/26/25 20:10 08/27/25 08:28 Temperature 99.1 F 96.9 F Pulse Rate 96 85 Respiratory Rate 20 Blood Pressure 121/63 121/63 112/68 Pulse Oximetry 96 97 Oxygen Delivery Method Room Air Room Air BMI result Body Mass Index 52.2 Labs 08/22/25 08:56 Medications Medications Current Medications Acetaminophen (Acetaminophen 325 Mg Tablet) 650 mg PO Q6H PRN PRN Reason: Headache/Pain, Scale 1-10 Al Hydroxide/Mg Hydroxide (Magnesium Hydrox/Alum Hydrox 30 Ml Oral.Susp) 30 ml PO Q6H PRN PRN Reason: Heartburn/Nausea Bismuth Subsalicylate (Bismuth Subsalicylate 262 Mg Tablet) 524 mg PO DAILY PRN PRN Reason: Diarrhea Last Admin: 08/25/25 02:47 Dose: 524 mg Clonazepam (Clonazepam 1 Mg Tablet) 1 mg PO DAILY [facility] Last Admin: 08/27/25 08:37 Dose: 1 mg Escitalopram Oxalate (Escitalopram Oxalate 10 Mg Tablet) 10 mg PO DAILY [facility] Last Admin: 08/27/25 08:32 Dose: 10 mg Estradiol (Estradiol 0.5 Mg Tablet) 3 mg PO BID [facility] Last Admin: 08/27/25 08:30 Dose: 3 mg Fluticasone Propionate (Fluticasone Propionate Nasal 16 Gm [place]) 2 spray NOSTRIL-B DAILY PRN PRN Reason: allergies Hydroxyzine HCl (Hydroxyzine Hcl 25 Mg Tablet) 25 mg PO Q6H PRN PRN Reason: mild anxiety Hydroxyzine HCl (Hydroxyzine Hcl 50 Mg Tablet) 50 mg PO TID [facility] Last Admin: 08/27/25 08:32 Dose: 50 mg Magnesium Hydroxide (Milk Of Magnesia 30 Ml Oral.Susp) 30 ml PO DAILY PRN PRN Reason: Constipation Melatonin (Melatonin 3 Mg Tablet) 6 mg PO BEDTIME PRN PRN Reason: Insomnia Last Admin: 08/25/25 20:52 Dose: 6 mg Metformin HCl (Metformin Hcl Er 500 Mg Tab.Er.24h) 1,000 mg PO BID [facility] Last Admin: 08/27/25 08:33 Dose: 1,000 mg Multivitamins/Vitamin C (Multivitamin Tablet) 1 tab PO DAILY [facility] Last Admin: 08/27/25 08:33 Dose: 1 tab Nicotine (Nicotine 21 Mg Patch.Td24) 21 mg TRANSDERMA DAILY PRN PRN Reason: nicotine craving Nicotine Polacrilex (Nicotine Polacrilex 2 Mg Gum) 2 mg BUCCAL Q2H PRN PRN Reason: Nicotine Cravings Olanzapine (Olanzapine 5 Mg Tablet) 5 mg PO BID PRN PRN Reason: agitation Last Admin: 08/22/25 20:30 Dose: 5 mg Ondansetron HCl (Ondansetron Odt 4 Mg Tab.Rapdis) 4 mg TRANSLINGU Q12H PRN PRN Reason: Nausea and Vomiting Last Admin: 08/23/25 17:16 Dose: 4 mg Risperidone (Risperidone 0.5 Mg Tablet) 1.5 mg PO BID [facility] Last Admin: 08/27/25 08:30 Dose: 1.5 mg Spironolactone (Spironolactone 25 Mg Tablet) 100 mg PO BID [facility]; Protocol Last Admin: 08/27/25 08:31 Dose: 100 mg Topiramate (Topiramate 100 Mg Tablet) 100 mg PO BID [facility] Last Admin: 08/27/25 08:34 Dose: 100 mg Trazodone HCl (Trazodone Hcl 50 Mg Tablet) 50 mg PO BEDTIME MRX1 PRN PRN Reason: Insomnia Last Admin: 08/26/25 20:11 Dose: 50 mg Allergies Allergies Allergy/AdvReac Type Severity Reaction Status Date / Time No Known Allergies Allergy Verified 08/21/25 18:30 Assessment & Plan Assessment & Plan (1) Severe recurrent major depression w/psychotic features, mood-congruent: Status: Acute Code(s): F33.3 - Major depressive disorder, recurrent, severe with psychotic symptoms (2) Intellectual disability: Status: Acute Code(s): F79 - Unspecified intellectual disabilities (3) Autism: Status: Acute Code(s): F84.0 - Autistic disorder (4) ADHD: Status: Acute Code(s): F90.9 - Attention-deficit hyperactivity disorder, unspecified type (5) Type 2 diabetes mellitus: Status: Acute Code(s): E11.9 - Type 2 diabetes mellitus without complications Plan 29yo male to female, hx of recurrent major depression with psychosis, intellectual disability, autism,adhd, dm, asks to be called [facility], presents in transfer from [facility] and her retirement for SI with plan to run into traffic ( report indicates she actually did run into traffic) and to harm others. Reports SI since 08/20 with intermittent thoughts to end her life for a longer period of time. Precipitants not very clear, I did not want to take medicine for my throat . Reports feeling sad-trying to admit to respite, called crisis on Tuesday and they wanted her to have a re-evaluation and consult with their team. Reports poor sleep, waking up with voices, CAH to self harm. States she lives in a retirement, since 2018, with two other housemates who are new. They feel unsafe at the retirement as they fear someone is after them. Also, they report they prefer female housemates and current housemates are male. 08/23/25: Continue tx 08/24: continue tx plan. 08/25:Laying down, trying to nap. Patient continues to report feeling depressed; reports having thoughts of self harm but denies SI. denies HI/VH/AH. continue tx plan. 08/27: PHP referral Increase Lexapro to 15 mg daily Three day notice to 08/29. Discharge being planned. Plan: Admit, CV, 15 minute checks Encourage full milieu Diagnostics as needed Collateral Contact Increase Risperdal to 1.5 mg bid to address CAH Continue remainder of regime Reason for continued inpatient stay Substantial Risk for: stable for discharge Time Spent With Patient Time: Total time managing care of this patient today ____ minutes.
[2025-08-27 20:00] VITALS: BP 122/77; PULSE 95; RESP 16; TEMP 36.5; O2SAT 99
[2025-08-28 08:35] VITALS: BP 121/58; PULSE 99; RESP 20; TEMP 36.3; O2SAT 99
--- NOTE | 2025-08-28 09:40 | HO.PSYCHPN ---
Subjective Subjective Date of Service: 08/28/25 Reason For Visit: major depression, recurrent severe Subjective Notes: Conditional Voluntary and 3 Day Healthcare Proxy: No Guardianship: No Medical Problems Affecting Mental Status: No Interim History: Juani denies HI,AH,VH. SI is passive, without intent Her three day notice expires on 08/29. She is bright, anxious, attention seeking, excited to return home and to trial PHP with [facility]. Visable in the milieu, connecting often with all peers and team Medication Compliance: Yes Side effects from medications: No Attending Groups: No Review of Systems Acute medical concerns: No Medical Review of Systems: unchanged Review of Systems Review of Systems Denies Mental Status Exam Mental Status Exam Patient Appearance: Appropriate Patient Orientation: Person, Place, Time and Situation Level of Consciousness: Alert Patient Behavior: Dependent, Talkative, Cooperative, Restless, Anxious, Distractible and Good Eye Contact Mood Description: Apprehensive Affect Description: Apprehensive Patient Cognition Impaired: Yes Ability to Follow Directions: Good Speech Pattern: Spontaneous Speech Memory Description: Intact Hallucinations: None (denies) Delusions: Not Present Perceptual Disturbances: Depersonalization and Derealization Thought Process: Goal Oriented Thought Content: positive for Goal Oriented and positive for Suicidal Ideation (passive, inconsistent, without plan, intent) Depressive Symptoms: Thoughts of /Suicide (passive) Judgement: Good Diagnostics Vital Signs (24Hr): Vital Signs - 24 hr 08/27/25 20:00 08/28/25 08:35 Temperature 97.7 F 97.4 F Pulse Rate 95 99 Respiratory Rate 16 20 Blood Pressure 122/77 121/58 L Pulse Oximetry 99 99 Oxygen Delivery Method Room Air Room Air BMI result Body Mass Index 52.2 Labs 08/22/25 08:56 Medications Medications Current Medications Acetaminophen (Acetaminophen 325 Mg Tablet) 650 mg PO Q6H PRN PRN Reason: Headache/Pain, Scale 1-10 Al Hydroxide/Mg Hydroxide (Magnesium Hydrox/Alum Hydrox 30 Ml Oral.Susp) 30 ml PO Q6H PRN PRN Reason: Heartburn/Nausea Bismuth Subsalicylate (Bismuth Subsalicylate 262 Mg Tablet) 524 mg PO DAILY PRN PRN Reason: Diarrhea Last Admin: 08/25/25 02:47 Dose: 524 mg Clonazepam (Clonazepam 1 Mg Tablet) 1 mg PO DAILY [facility] Last Admin: 08/28/25 08:40 Dose: 1 mg Escitalopram Oxalate (Escitalopram Oxalate 5 Mg Tablet) 15 mg PO DAILY [facility] Last Admin: 08/28/25 08:38 Dose: 15 mg Estradiol (Estradiol 0.5 Mg Tablet) 3 mg PO BID [facility] Last Admin: 08/28/25 09:13 Dose: 3 mg Fluticasone Propionate (Fluticasone Propionate Nasal 16 Gm [place]) 2 spray NOSTRIL-B DAILY PRN PRN Reason: allergies Hydroxyzine HCl (Hydroxyzine Hcl 25 Mg Tablet) 25 mg PO Q6H PRN PRN Reason: mild anxiety Hydroxyzine HCl (Hydroxyzine Hcl 50 Mg Tablet) 50 mg PO TID [facility] Last Admin: 08/28/25 08:38 Dose: 50 mg Magnesium Hydroxide (Milk Of Magnesia 30 Ml Oral.Susp) 30 ml PO DAILY PRN PRN Reason: Constipation Melatonin (Melatonin 3 Mg Tablet) 6 mg PO BEDTIME PRN PRN Reason: Insomnia Last Admin: 08/27/25 21:01 Dose: 6 mg Metformin HCl (Metformin Hcl Er 500 Mg Tab.Er.24h) 1,000 mg PO BID [facility] Last Admin: 08/28/25 08:39 Dose: 1,000 mg Multivitamins/Vitamin C (Multivitamin Tablet) 1 tab PO DAILY [facility] Last Admin: 08/28/25 08:40 Dose: 1 tab Nicotine (Nicotine 21 Mg Patch.Td24) 21 mg TRANSDERMA DAILY PRN PRN Reason: nicotine craving Nicotine Polacrilex (Nicotine Polacrilex 2 Mg Gum) 2 mg BUCCAL Q2H PRN PRN Reason: Nicotine Cravings Olanzapine (Olanzapine 5 Mg Tablet) 5 mg PO BID PRN PRN Reason: agitation Last Admin: 08/22/25 20:30 Dose: 5 mg Ondansetron HCl (Ondansetron Odt 4 Mg Tab.Rapdis) 4 mg TRANSLINGU Q12H PRN PRN Reason: Nausea and Vomiting Last Admin: 08/23/25 17:16 Dose: 4 mg Risperidone (Risperidone 0.5 Mg Tablet) 1.5 mg PO BID [facility] Last Admin: 08/28/25 08:39 Dose: 1.5 mg Spironolactone (Spironolactone 25 Mg Tablet) 100 mg PO BID [facility]; Protocol Last Admin: 08/28/25 08:37 Dose: 100 mg Topiramate (Topiramate 100 Mg Tablet) 100 mg PO BID [facility] Last Admin: 08/28/25 08:40 Dose: 100 mg Trazodone HCl (Trazodone Hcl 50 Mg Tablet) 50 mg PO BEDTIME MRX1 PRN PRN Reason: Insomnia Last Admin: 08/27/25 21:02 Dose: 50 mg Allergies Allergies Allergy/AdvReac Type Severity Reaction Status Date / Time No Known Allergies Allergy Verified 08/21/25 18:30 Assessment & Plan Assessment & Plan (1) Severe recurrent major depression w/psychotic features, mood-congruent: Status: Acute Code(s): F33.3 - Major depressive disorder, recurrent, severe with psychotic symptoms (2) Intellectual disability: Status: Acute Code(s): F79 - Unspecified intellectual disabilities (3) Autism: Status: Acute Code(s): F84.0 - Autistic disorder (4) ADHD: Status: Acute Code(s): F90.9 - Attention-deficit hyperactivity disorder, unspecified type (5) Type 2 diabetes mellitus: Status: Acute Code(s): E11.9 - Type 2 diabetes mellitus without complications Plan 29yo male to female, hx of recurrent major depression with psychosis, intellectual disability, autism,adhd, dm, asks to be called Juani, presents in transfer [facility] and [facility] for SI with plan to run into traffic ( report indicates she actually did run into traffic) and to harm others. Reports SI since 08/20 with intermittent thoughts to end her life for a longer period of time. Precipitants not very clear, I did not want to take medicine for my throat . Reports feeling sad-trying to admit to respite, called crisis on Tuesday and they wanted her to have a re-evaluation and consult with their team. Reports poor sleep, waking up with voices, CAH to self harm. States she lives in a penitentiary, since 2018, with two other housemates who are new. They feel unsafe at the penitentiary as they fear someone is after them. Also, they report they prefer female housemates and current housemates are male. 08/23/25: Continue tx 08/24: continue tx plan. 08/25:Laying down, trying to nap. Patient continues to report feeling depressed; reports having thoughts of self harm but denies SI. denies HI/VH/AH. continue tx plan. 08/26: TDN to 08/29. Wanting to move forward Team meeting 08/27. 08/28: DC 08/29 Referral to [facility] is completed. Plan: Admit, CV, 15 minute checks Encourage full milieu Diagnostics as needed Collateral Contact Increase Risperdal to 1.5 mg bid to address CAH Continue remainder of regime Reason for continued inpatient stay Substantial Risk for: stable for discharge Time Spent With Patient Time: Total time managing care of this patient today ____ minutes.
[2025-08-28 20:00] VITALS: BP 106/62; PULSE 78; RESP 16; TEMP 36.4; O2SAT 99
[2025-08-28 21:09] VITALS: BP 123/63
[2025-08-28] MEDS: Bismuth Subsalicylate 262 MG TABLET 524 MG PO (21:52)
--- NOTE | 2025-08-29 08:17 | PC.NURSE ---
Pt refused vital signs
[2025-08-29 08:34] LABS: Creatinine Clr Calc Pharmacy 170.4; Estimated Glomerular Filt Rate > 60
[2025-08-29 08:55] VITALS: BP 110/62
--- NOTE | 2025-08-29 10:19 | PM.PSYDC ---
DS: Providers Provider Date of Service: 08/29/25 Date of admission: 08/21/25 18:22 Date of discharge: 08/29/25 Primary care physician: Unknown Physician Admitting clinician: Tamie Lopez Attending physician on admission: Hitesh Weiss Consults: 08/21/25 18:30 Consult to Hospitalist Routine Comment: Consulting Provider: [facility] Hospitalists Reason For Exam: New external admit H+P Attending physician on discharge: Hitesh Weiss Discharging clinician: Tamie Lopez DS: Diagnosis Discharge Diagnosis (1) Severe recurrent major depression w/psychotic features, mood-congruent: Status: Acute (2) Intellectual disability: Status: Acute (3) Autism: Status: Acute (4) ADHD: Status: Acute (5) Type 2 diabetes mellitus: Status: Acute DS: Medications Discharge Medications Home Medications: Home Medications ?Medication ?Instructions ?Recorded ?Confirmed bismuth subsalicylate 262 mg 2 tab PO NEEDED nausea/vomiting 08/21/25 08/21/25 chewable tablet estradiol 1 mg tablet 3 mg PO BID 08/21/25 08/21/25 metformin 500 mg tablet,extended 1,000 mg PO BID 08/21/25 08/21/25 release 24 hr spironolactone 100 mg tablet 100 mg PO BID 08/21/25 08/21/25 tirzepatide 2.5 mg/0.5 mL 2.5 mg subcut QWEEK 08/21/25 08/21/25 subcutaneous pen injector (Andrea) Previous Rx's ?Medication ?Instructions ?Recorded clonazepam 1 mg tablet 1 mg PO DAILY #30 tabs 08/29/25 escitalopram oxalate 5 mg tablet 15 mg (3 x 5 mg) PO DAILY #90 tabs 08/29/25 hydroxyzine HCl 50 mg tablet 50 mg PO TID #90 tabs 08/29/25 melatonin 3 mg tablet 6 mg (2 x 3 mg) PO BEDTIME PRN 08/29/25 Insomnia #60 tabs multivitamin (Daily-Mariah tablet) 1 tab PO DAILY #30 tabs 08/29/25 olanzapine 5 mg tablet 5 mg PO BID PRN agitation #60 tabs 08/29/25 risperidone 0.5 mg tablet 1.5 mg (3 x 0.5 mg) PO BID #90 tabs 08/29/25 topiramate 100 mg tablet 100 mg PO BID #60 tabs 08/29/25 trazodone 50 mg tablet 50 mg PO BEDTIME MRX1 PRN Insomnia 08/29/25 #60 tabs Mental Status Exam Mental Status Exam Patient Appearance: Appropriate Patient Orientation: Person, Place, Time and Situation Level of Consciousness: Alert Patient Behavior: Dependent, Talkative, Cooperative, Restless, Anxious, Distractible and Good Eye Contact Mood Description: Apprehensive Affect Description: Apprehensive Patient Cognition Impaired: Yes Ability to Follow Directions: Good Speech Pattern: Spontaneous Speech Memory Description: Intact Hallucinations: None (denies) Delusions: Not Present Perceptual Disturbances: Depersonalization and Derealization Thought Process: Goal Oriented Thought Content: positive for Goal Oriented and positive for Suicidal Ideation (passive, inconsistent, without plan, intent) Depressive Symptoms: Thoughts of /Suicide (passive) Judgement: Good Data Data Completed and Pending Completed studies during hospitalization [Text1]: 08/23/25 08/29/25 08:08 08:03 Creatinine 0.82 Estim Creat Clear Calc 170.4 Estimated GFR > 60 Estimat Average Glucose 91 Hemoglobin A1c % 4.8 DS: Summary Hospital Course Hospital Course: Admission to adult psychiatry for exacerbation of recurrent major depression with psychosis. History of intellectual disability, autism, ADHD, DMII. Pt prefers female pronouns and is male to female. Pt lives in a assisted, ran into traffic in a suicide attempt and continued to threaten suicide if not sent to respite. Medications were evaluated and adjusted. Pt was offered full milieu to help her to strengthen coping skills. Suicidality resolved with treatment. A team meeting was held with her out pt and residential providers to provide care planning. Pt, when ready to leave, signed a three day notice of intent. She will return to her providers with [facility], and will attend PHP with [facility]. Status at Discharge Functional status at discharge: independent ambulation Overall status at discharge: patient is progressing back to baseline Time Spent with Patient Time attestation: Total time managing care of this patient today ____ minutes. Time spent: Less than 30 minutes Discharge Plan Discharge Anticipated Discharge Date/Time: 08/29/25 11:00 Patient Disposition: Xfer Other Discharge Diagnosis: Intellectual Disability Autism Recurrent Major Depression with Psychosis ADHD Diabetes, Type II Referrals: [facility]: Gabriela Brown NP [Other] - 09/09/25 1:30 pm Referral Note: Scheduled appointment with psychiatric provider Appointment in person at [facility] in [place]. [facility]: Mimi Acuna (therapist) [Other] - 09/09/25 5:00 pm Referral Note: Scheduled appointment with therapist Appointment in person at [facility] in [place]. [facility] (PHP): Partial hospitalization program [Other] - 09/11/25 1:00 pm Referral Note: Initial intake for PHP/IOP Initial intake is in person at [facility] Physician,Unknown J [Primary Care Provider, Medical] - 1 Week Discharge Medications: New multivitamin [Daily-Mariah] Tablet 1 tab PO DAILY Qty: 30 0RF trazodone 50 mg Tablet 50 mg PO BEDTIME MRX1 PRN (Reason: Insomnia) Qty: 60 0RF olanzapine 5 mg Tablet 5 mg PO BID PRN (Reason: agitation) Qty: 60 0RF clonazepam 1 mg Tablet 1 mg PO DAILY Qty: 30 0RF hydroxyzine HCl 50 mg Tablet 50 mg PO TID Qty: 90 0RF melatonin 3 mg Tablet 6 mg PO BEDTIME PRN (Reason: Insomnia) Qty: 60 0RF risperidone 0.5 mg Tablet 1.5 mg PO BID Qty: 90 0RF escitalopram oxalate 5 mg Tablet 15 mg PO DAILY Qty: 90 0RF topiramate 100 mg Tablet 100 mg PO BID Qty: 60 0RF Continued spironolactone 100 mg tablet 100 mg PO BID estradiol 1 mg tablet 3 mg PO BID bismuth subsalicylate 262 mg tablet,chewable 2 tab PO NEEDED metformin 500 mg tablet extended release 24 hr 1,000 mg PO BID Mounjaro 2.5 mg/0.5 mL pen injector 2.5 mg SUBCUT QWEEK Discontinued clonazepam 1 mg tablet 1 mg PO QAM hydroxyzine pamoate 50 mg capsule 50 mg PO TID melatonin 3 mg tablet 6 mg PO BEDTIME PRN (Reason: insomnia) citalopram 20 mg tablet 20 mg PO QAM topiramate 100 mg tablet 100 mg PO BID fluticasone propionate 50 mcg/actuation spray,suspension 2 spray intranasal DAILY PRN (Reason: allergies) risperidone 1 mg tablet 1 mg PO BID Discharge Orders: Discharge Order (Routine); Ordered 08/29/25 Ordered By: Tamie Lopez Diet: Advance to usual diet Activity on Discharge: As tolerated Stand Alone Forms: Patient Portal Discharge page, Community Support Print Language: Persian Care Plan Goals: Mood and Behavioral Stabilization Health Concerns: Mood and Behavioral Stabilization Plan of Treatment: Attend scheduled appointments Take medications as directed PHP Intake with [facility] Assessment: Pt discharges on a three day notice of intent. Discharge Date/Time: 08/29/25 15:40
== END 2025-08-29 15:40 | disposition other institution (70) | DRG 885 ==
PROVIDERS: Nurse Practitioner Psychiatric/Mental Health; Admitting Provider Psychiatry & Neurology Psychiatry; Visit Provider Clinical Nurse Specialist Psychiatric/Mental Health, Adult
DX: F33.3 Major depressive disorder, recurrent, severe with psychotic symptoms (principal); R45.851 Suicidal ideations; Z68.43 Body mass index [BMI] 50.0-59.9, adult; F84.0 Autistic disorder; E11.9 Type 2 diabetes mellitus without complications; F79 Unspecified intellectual disabilities; F90.9 Attention-deficit hyperactivity disorder, unspecified type; F64.0 Transsexualism; R45.850 Homicidal ideations; E66.9 Obesity, unspecified; Z23 Encounter for immunization; Z79.84 Long term (current) use of oral hypoglycemic drugs; Z79.899 Other long term (current) drug therapy
CPT/HCPCS: 36415; 80053; 80061; 82565; 83036; 84439; 84443; 90656; 93005

== ENCOUNTER 2025-08-21 18:22 | Outpatient (BNV) | payer MEDICARE, MEDICAID, SELFPAY | END 2025-08-22 14:14 | PROVIDERS: Admitting Provider Psychiatry & Neurology Psychiatry; Visit Provider Internal Medicine Cardiovascular Disease | DX: R42 Dizziness and giddiness (principal) | CPT/HCPCS: 93010 ==

== ENCOUNTER → 2025-08-21 18:22 | Outpatient (BNV) | payer MEDICARE, MEDICAID, SELFPAY | PROVIDERS: Admitting Provider Psychiatry & Neurology Psychiatry; Visit Provider Psychiatry & Neurology Psychiatry | DX: F33.3 Major depressive disorder, recurrent, severe with psychotic symptoms (principal); F79 Unspecified intellectual disabilities; F84.0 Autistic disorder; F90.9 Attention-deficit hyperactivity disorder, unspecified type; E11.9 Type 2 diabetes mellitus without complications | CPT/HCPCS: 90792; 99232 ==

== ENCOUNTER → 2025-08-21 18:22 | Outpatient (BNV) | payer MEDICARE, MEDICAID, SELFPAY | PROVIDERS: Admitting Provider Psychiatry & Neurology Psychiatry; Visit Provider Nurse Practitioner Family | DX: E11.9 Type 2 diabetes mellitus without complications (principal) | CPT/HCPCS: 99221 ==